=== PATIENT | male | born 1980 | race Caucasian/White ===

== ENCOUNTER 2016-04-08 20:15 | Emergency (ER) | payer OTHER, SELFPAY ==
[~2016-04-08 20:15] MED LIST: BACT800T5 PO; CLEO300C2 PO; MOTR200T44 PO; NICO14DI3 TD; PERC5TAB6 PO; VITMTA PO
[2016-04-08] MEDS ORDERED: NALOXONE INJ 2 MG/2 ML SYRINGE (J2310) As Ordered ONE (20:27)
--- NOTE | 2016-04-08 21:31 | EDDOCDS ---
Physician Documentation [facility] Name: Sree Acosta Age: 35 yrs Sex: Male : 1980 Arrival Date: 04/08/2016 Time: 20:15 Bed 1 Private MD: Unknown Pcp Disposition: 04/08 21:18 Critical Care: Critical care not applicable. pc Disposition: 04/08/16 21:20 Discharged to Home/Self Care. Impression: Poisoning by heroin, accidental (unintentional), Opioid abuse. - Condition is Stable. - Discharge Instructions: Narcotic Overdose, Opioid Use Disorder. - Medication Reconciliation, Local Pharmacy Hours form. - [facility] up[facility]; When: Call to arrange an appointment; Reason: To establish care. - Problem is new. - Symptoms are resolved. HPI: 20:18 This 35 yrs old Male presents to ER with complaints of Possible Overdose. pc 20:18 The history is obtained from the patient, EMS providers, EMR. A reliable history and/or pc examination was not able to be obtained, due to the patient's level of intoxication. He was found by his grandmother, unresponsive, in hew home. He is a known heroin abuser. She called 911 and they administered intranasal Narcan to a total of 4mg, with him improving from an initial unresponsive and apneic presentation to now awake and able to answer some questions and with normal respirations. The patient has experienced similar episodes in the past, several times. Historical: - Allergies: No known drug Allergies; - Home Meds: 1. mirtazapine 15 mg Oral tab 1 tab once daily - PMHx: Hepatitis C; Heroin Use; - PSHx: right hand surgery; - The history from nurses notes was reviewed: but there are no nursing notes, or only partial notes available at the time of my charting. - Social history: Smoking status: Patient uses tobacco products, heavy tobacco smoker. Patient uses street drugs, heroin, No barriers to communication noted, The patient speaks fluent [place]iboutian, Speaks appropriately for age. - Family history: No immediate family members are acutely ill. - : The pt / caregiver states he / she is not on anticoagulants. Home medication list is obtained from the patient. - Immunization history:: unknown. - Exposure Risk Screening:: None identified. - Social history:: the patient smokes cigarettes the patient drinks alcohol, the patient uses illicit drugs, including heroin, opiates. ROS: 20:22 Unable to reliably obtain pc Exam: 20:22 General Appearance: no acute distress, alert. pc 20:22 EENT: ears, nose and throat normal, pharynx normal, mucous membranes moist pupils 2-3mm, sluggish . 20:22 Neck: The exam reveals no acute abnormalities. ROM is normal and painless. No nuchal rigidity is noted.. 20:22 Respiratory: no respiratory distress, normal breath sounds. 20:22 CVS: regular pulse rate, regular rhythm, normal S1 and S2, no murmurs, strong peripheral pulses. 20:22 Abdomen: soft, non-tender, no organomegaly, normal bowel sounds. 20:22 Back: normal inspection. 20:22 Skin: skin color is normal, warm, dry. 20:22 Extremities: track carson on left forearm . 20:22 Neuro: cranial nerves normal as tested, no motor deficits, no sensory deficits, not oriented to time. Vital Signs: 20:19 Temp 98.0(O); af2 20:25 BP 120 / 74; Pulse 83; Resp 18; Pulse Ox 96% on R/A; Weight 80.74 kg / 178 lbs (M); nn1 Height 5 ft. 8 in. (172.72 cm); Pain 0/10; 20:27 BP 112 / 59 (auto/); nn1 20:28 Pulse 96 MON; Pulse Ox 91% ; nn1 20:30 BP 99 / 58 (auto/); nn1 20:30 Pulse 98 MON; Pulse Ox 91% ; nn1 20:45 BP 99 / 58 (auto/); nn1 20:45 Pulse 102 MON; Pulse Ox 91% ; nn1 21:00 BP 103 / 62 (auto/); nn1 21:01 Pulse 96 MON; Pulse Ox 91% ; nn1 21:22 BP 99 / 55; Pulse 94; Resp 18; Temp 98.7; Pulse Ox 95% on R/A; Pain 0/10; nn1 20:25 Body Mass Index 27.06 (80.74 kg, 172.72 cm) nn1 MDM: 20:18 naloxone 2 mg IM once ordered. pc 20:18 IV Saline Lock ordered. pc 20:18 naloxone 2 mg IVP once ordered. pc 20:22 Differential Diagnosis: heroin OD. Plan: meds, observe. pc 21:18 Data reviewed: available EMS record, old medical records, vital signs, nurses notes. pc Test interpretation: none. The patient has been re-examined and re-evaluated. The patient's symptoms have resolved after treatment. Disposition: The historical points, examination findings, and any diagnostic results supporting the provided diagnosis, were discussed with the patient or legal guardian. The need for outpatient follow up with the provider listed on their discharge instructions was discussed. They were encouraged to return to [facility], or the nearest ED, if symptoms worsen/persist, or for any other questions/concerns. 21:18 ED course: He denies any SI intent, that he did one bag of heroin for recreation only. pc He denies PFS services. Declines drug rehab counselling . Administered Medications: 20:32 Drug: naloxone 2 mg [naloxone 1 mg/mL injection syringe (2 mL)] Route: IVP; Site: right nn1 forearm; 20:33 Drug: naloxone 2 mg [naloxone 1 mg/mL injection syringe (2 mL)] Route: IM; Site: right nn1 deltoid; Signatures: Von Guevara MD MD pc Julio Cesar UmañaRN RN nn1 The chart was reviewed and I authenticate all verbal orders and agree with the evaluation and treatment provided.Corrections: (The following items were deleted from the chart) 20:21 20:18 The history is obtained from EMS providers, [facility] 21:21 21:18 ED course: He denies any SI intent, that he did one bag of heroin for recreation pc only . pc MTDD
--- NOTE | 2016-04-08 21:31 | EDDOCDS ---
Nurse's Notes [facility] Name: Sree Acosta Age: 35 yrs Sex: Male : 1980 Arrival Date: 04/08/2016 Time: 20:15 Bed 1 Private MD: Unknown Pcp Diagnosis: Poisoning by heroin, accidental (unintentional);Opioid abuse Presentation: 04/08 20:17 Presenting complaint: EMS states: patient found unresponsive on kitchen floor by his nn1 grandmother. Patient given 4mg narcan IM. Assisted ventilation at that time by EMS. Patient recently in rehab. Blood sugar was 366. Patient currently responsive, breathing spontaneously. Adult Sepsis Screening: Patient has new or worsening altered mentation (1 point). Patient's respiratory rate is less than 22. Systolic blood pressure is greater than 100. Patient has a qSOFA score of 1- Negative Sepsis Screen. Suicide/Homicide risk assessment- the patient denies having any suicidal and/or homicidal ideations and does not present with any other emotional, behavioral or mental health complaints. Status: Patient is not a service car driver or dependent. Transition of care: patient was not received from another setting of care. 20:17 Acuity: EILEEN Level 3 nn1 20:17 Method Of Arrival: Ambulance nn1 Triage Assessment: 20:22 General: Appears in no apparent distress, Behavior is appropriate for age, cooperative. nn1 Pain: Denies pain. Pt Declines HIV testing. The patient is triaged at the bedside. See Assessment in Nurses Notes section of ED record. Neurological: Level of Consciousness is awake, alert, confused, obeys commands, Oriented to person, place. Cardiovascular: Capillary refill < 3 seconds Heart tones S1 S2 present Chest pain is denied. Respiratory: No deficits noted. Airway is patent Respiratory effort is even, unlabored, Respiratory pattern is regular, symmetrical, Breath sounds are clear bilaterally. GI: Abdomen is non- distended Bowel sounds present X 4 quads. Abd is soft and non tender X 4 quads. Derm: Skin is pink, warm & dry. Musculoskeletal: Circulation, motion, and sensation intact Capillary refill < 3 seconds Range of motion intact in all extremities. Historical: - Allergies: No known drug Allergies; - Home Meds: 1. mirtazapine 15 mg Oral tab 1 tab once daily - PMHx: Hepatitis C; Heroin Use; - PSHx: right hand surgery; - The history from nurses notes was reviewed: but there are no nursing notes, or only partial notes available at the time of my charting. - Social history: Smoking status: Patient uses tobacco products, heavy tobacco smoker. Patient uses street drugs, heroin, No barriers to communication noted, The patient speaks fluent Fijian, Speaks appropriately for age. - Family history: No immediate family members are acutely ill. - : The pt / caregiver states he / she is not on anticoagulants. Home medication list is obtained from the patient. - Immunization history:: unknown. - Exposure Risk Screening:: None identified. - Social history:: the patient smokes cigarettes the patient drinks alcohol, the patient uses illicit drugs, including heroin, opiates. Screenin:23 Screening information is obtained from the patient. Fall risk: At risk due to substance nn1 abuse . Assistance ADL's: requires no assistance with activities of daily living. Abuse/DV Screen: The patient / caregiver reports he/she is: not in a situation that causes fear, pain or injury. Nutritional screening: No deficits noted. Advance Directives: Currently, there is no health care proxy. home support is adequate. Assessment: 20:25 General: See triage assessment . nn1 21:12 General: Appears in no apparent distress, comfortable, Behavior is appropriate for age, nn1 cooperative. Neurological: Level of Consciousness is awake, alert. Respiratory: Airway is patent Respiratory effort is even, unlabored, Respiratory pattern is regular, symmetrical, Breath sounds are clear bilaterally. Derm: Skin is pink, warm & dry. Vital Signs: 20:19 Temp 98.0(O); af2 20:25 BP 120 / 74; Pulse 83; Resp 18; Pulse Ox 96% on R/A; Weight 80.74 kg (M); Height 5 ft. nn1 8 in. (172.72 cm); Pain 0/10; 20:27 BP 112 / 59 (auto/); nn1 20:28 Pulse 96 MON; Pulse Ox 91% ; nn1 20:30 BP 99 / 58 (auto/); nn1 20:30 Pulse 98 MON; Pulse Ox 91% ; nn1 20:45 BP 99 / 58 (auto/); nn1 20:45 Pulse 102 MON; Pulse Ox 91% ; nn1 21:00 BP 103 / 62 (auto/); nn1 21:01 Pulse 96 MON; Pulse Ox 91% ; nn1 21:22 BP 99 / 55; Pulse 94; Resp 18; Temp 98.7; Pulse Ox 95% on R/A; Pain 0/10; nn1 20:25 Body Mass Index 27.06 (80.74 kg, 172.72 cm) nn1 Vitals: 20:19 Log In Time N/A - ambulance arrival. af2 ED Course: 20:16 Patient visited by Dang Carr PCA. tmm1 20:16 Unknown Pcp is Private Physician. tmm1 20:16 Patient moved to Waiting tmm1 20:17 Von Guevara MD is Attending Physician. pc 20:17 Patient visited by Von Guevara MD. pc 20:17 Patient moved to 1 tmm1 20:20 Triage Initiated nn1 20:25 Inserted saline lock: 20 gauge in right antecubital area and blood collected. The kas2 patient tolerated the procedure well. 21:12 Patient visited by Julio Cesar Umaña RN. nn1 21:20 [facility] is Referral Physician. pc 21:27 The patient / caregiver is instructed regarding the plan of care and ED course. nn1 21:28 No procedures done that require assistance. nn1 Administered Medications: 20:32 Drug: naloxone 2 mg [naloxone 1 mg/mL injection syringe (2 mL)] Route: IVP; Site: right nn1 forearm; 20:33 Drug: naloxone 2 mg [naloxone 1 mg/mL injection syringe (2 mL)] Route: IM; Site: right nn1 deltoid; Order Results: There are currently no results for this order. Outcome: 21:20 Discharge ordered by Provider. pc 21:27 Discharge Assessment: Patient awake, alert and oriented x 3. No cognitive and/or nn1 functional deficits noted. Patient verbalized understanding of disposition instructions. patient administered narcotics - no. The following High Risk Discharge criteria are identified: None. Discharged to home ambulatory. Condition: improved. No special radiology studies were completed. Property :Personal belongings accompany Pt. 21:29 Patient left the ED. nn1 Signatures: Von Guevara MD MD Dang Carr, SAEID DIRECTOR OF ARCHITECTURE tmm1 Ritika Jesus RN RN af2 Julio Cesar Umaña RN RN nn1 Chasidy Collins RN RN kas2 MTDD
--- NOTE | 2016-04-10 22:29 | EDDOCDS ---
Physician Documentation [facility] Name: Sree Acosta Age: 35 yrs Sex: Male : 1980 Arrival Date: 04/08/2016 Time: 20:15 Bed 1 Private MD: Unknown Pcp Disposition: 04/08 21:18 Critical Care: Critical care not applicable. pc Disposition: 04/08/16 21:20 Discharged to Home/Self Care. Impression: Poisoning by heroin, accidental (unintentional), Opioid abuse. - Condition is Stable. - Discharge Instructions: Narcotic Overdose, Opioid Use Disorder. - Medication Reconciliation, Local Pharmacy Hours form. - Follow up: [facility]; When: Call to arrange an appointment; Reason: To establish care. - Problem is new. - Symptoms are resolved. HPI: 20:18 This 35 yrs old Male presents to ER with complaints of Possible Overdose. pc 20:18 The history is obtained from the patient, EMS providers, EMR. A reliable history and/or pc examination was not able to be obtained, due to the patient's level of intoxication. He was found by his grandmother, unresponsive, in hew home. He is a known heroin abuser. She called 911 and they administered intranasal Narcan to a total of 4mg, with him improving from an initial unresponsive and apneic presentation to now awake and able to answer some questions and with normal respirations. The patient has experienced similar episodes in the past, several times. Historical: - Allergies: No known drug Allergies; - Home Meds: 1. mirtazapine 15 mg Oral tab 1 tab once daily - PMHx: Hepatitis C; Heroin Use; - PSHx: right hand surgery; - The history from nurses notes was reviewed: but there are no nursing notes, or only partial notes available at the time of my charting. - Social history: Smoking status: Patient uses tobacco products, heavy tobacco smoker. Patient uses street drugs, heroin, No barriers to communication noted, The patient speaks fluent Kyrgyz, Speaks appropriately for age. - Family history: No immediate family members are acutely ill. - : The pt / caregiver states he / she is not on anticoagulants. Home medication list is obtained from the patient. - Immunization history:: unknown. - Exposure Risk Screening:: None identified. - Social history:: the patient smokes cigarettes the patient drinks alcohol, the patient uses illicit drugs, including heroin, opiates. ROS: 20:22 Unable to reliably obtain pc Exam: 20:22 General Appearance: no acute distress, alert. pc 20:22 EENT: ears, nose and throat normal, pharynx normal, mucous membranes moist pupils 2-3mm, sluggish . 20:22 Neck: The exam reveals no acute abnormalities. ROM is normal and painless. No nuchal rigidity is noted.. 20:22 Respiratory: no respiratory distress, normal breath sounds. 20:22 CVS: regular pulse rate, regular rhythm, normal S1 and S2, no murmurs, strong peripheral pulses. 20:22 Abdomen: soft, non-tender, no organomegaly, normal bowel sounds. 20:22 Back: normal inspection. 20:22 Skin: skin color is normal, warm, dry. 20:22 Extremities: track carson on left forearm . 20:22 Neuro: cranial nerves normal as tested, no motor deficits, no sensory deficits, not oriented to time. Vital Signs: 20:19 Temp 98.0(O); af2 20:25 BP 120 / 74; Pulse 83; Resp 18; Pulse Ox 96% on R/A; Weight 80.74 kg / 178 lbs (M); nn1 Height 5 ft. 8 in. (172.72 cm); Pain 0/10; 20:27 BP 112 / 59 (auto/); nn1 20:28 Pulse 96 MON; Pulse Ox 91% ; nn1 20:30 BP 99 / 58 (auto/); nn1 20:30 Pulse 98 MON; Pulse Ox 91% ; nn1 20:45 BP 99 / 58 (auto/); nn1 20:45 Pulse 102 MON; Pulse Ox 91% ; nn1 21:00 BP 103 / 62 (auto/); nn1 21:01 Pulse 96 MON; Pulse Ox 91% ; nn1 21:22 BP 99 / 55; Pulse 94; Resp 18; Temp 98.7; Pulse Ox 95% on R/A; Pain 0/10; nn1 20:25 Body Mass Index 27.06 (80.74 kg, 172.72 cm) nn1 MDM: 20:18 naloxone 2 mg IM once ordered. pc 20:18 IV Saline Lock ordered. pc 20:18 naloxone 2 mg IVP once ordered. pc 20:22 Differential Diagnosis: heroin OD. Plan: meds, observe. pc 21:18 Data reviewed: available EMS record, old medical records, vital signs, nurses notes. pc Test interpretation: none. The patient has been re-examined and re-evaluated. The patient's symptoms have resolved after treatment. Disposition: The historical points, examination findings, and any diagnostic results supporting the provided diagnosis, were discussed with the patient or legal guardian. The need for outpatient follow up with the provider listed on their discharge instructions was discussed. They were encouraged to return to [facility], or the nearest ED, if symptoms worsen/persist, or for any other questions/concerns. 21:18 ED course: He denies any SI intent, that he did one bag of heroin for recreation only. pc He denies PFS services. Declines drug rehab counselling . :53 Financial registration complete. zo :53 [facility] Payment Agreement was scanned into [address] and attached to record. zo Administered Medications: 20:32 Drug: naloxone 2 mg [naloxone 1 mg/mL injection syringe (2 mL)] Route: IVP; Site: right nn1 forearm; 20:33 Drug: naloxone 2 mg [naloxone 1 mg/mL injection syringe (2 mL)] Route: IM; Site: right nn1 deltoid; Signatures: Von Guevara MD MD pc Olin, Zoeann zo Nunez, NikkoleRN RN nn1 The chart was reviewed and I authenticate all verbal orders and agree with the evaluation and treatment provided.Corrections: (The following items were deleted from the chart) 20:21 20:18 The history is obtained from EMS providers, pc pc : 21:18 ED course: He denies any SI intent, that he did one bag of heroin for recreation pc only . pc Attachments: :53 [facility] Payment Agreement zo Chart Complete MTDD
--- NOTE | 2016-04-10 22:29 | EDDOCDS ---
Physician Documentation [facility] Name: Sree Acosta Age: 35 yrs Sex: Male : 1980 Arrival Date: 04/08/2016 Time: 20:15 Bed 1 Private MD: Unknown Pcp Disposition: 04/08 21:18 Critical Care: Critical care not applicable. pc Disposition: 04/08/16 21:20 Discharged to Home/Self Care. Impression: Poisoning by heroin, accidental (unintentional), Opioid abuse. - Condition is Stable. - Discharge Instructions: Narcotic Overdose, Opioid Use Disorder. - Medication Reconciliation, Local Pharmacy Hours form. - Follow up: [facility]; When: Call to arrange an appointment; Reason: To establish care. - Problem is new. - Symptoms are resolved. HPI: 20:18 This 35 yrs old Male presents to ER with complaints of Possible Overdose. pc 20:18 The history is obtained from the patient, EMS providers, EMR. A reliable history and/or pc examination was not able to be obtained, due to the patient's level of intoxication. He was found by his grandmother, unresponsive, in hew home. He is a known heroin abuser. She called 911 and they administered intranasal Narcan to a total of 4mg, with him improving from an initial unresponsive and apneic presentation to now awake and able to answer some questions and with normal respirations. The patient has experienced similar episodes in the past, several times. Historical: - Allergies: No known drug Allergies; - Home Meds: 1. mirtazapine 15 mg Oral tab 1 tab once daily - PMHx: Hepatitis C; Heroin Use; - PSHx: right hand surgery; - The history from nurses notes was reviewed: but there are no nursing notes, or only partial notes available at the time of my charting. - Social history: Smoking status: Patient uses tobacco products, heavy tobacco smoker. Patient uses street drugs, heroin, No barriers to communication noted, The patient speaks fluent Palestinian, Speaks appropriately for age. - Family history: No immediate family members are acutely ill. - : The pt / caregiver states he / she is not on anticoagulants. Home medication list is obtained from the patient. - Immunization history:: unknown. - Exposure Risk Screening:: None identified. - Social history:: the patient smokes cigarettes the patient drinks alcohol, the patient uses illicit drugs, including heroin, opiates. ROS: 20:22 Unable to reliably obtain pc Exam: 20:22 General Appearance: no acute distress, alert. pc 20:22 EENT: ears, nose and throat normal, pharynx normal, mucous membranes moist pupils 2-3mm, sluggish . 20:22 Neck: The exam reveals no acute abnormalities. ROM is normal and painless. No nuchal rigidity is noted.. 20:22 Respiratory: no respiratory distress, normal breath sounds. 20:22 CVS: regular pulse rate, regular rhythm, normal S1 and S2, no murmurs, strong peripheral pulses. 20:22 Abdomen: soft, non-tender, no organomegaly, normal bowel sounds. 20:22 Back: normal inspection. 20:22 Skin: skin color is normal, warm, dry. 20:22 Extremities: track carson on left forearm . 20:22 Neuro: cranial nerves normal as tested, no motor deficits, no sensory deficits, not oriented to time. Vital Signs: 20:19 Temp 98.0(O); af2 20:25 BP 120 / 74; Pulse 83; Resp 18; Pulse Ox 96% on R/A; Weight 80.74 kg / 178 lbs (M); nn1 Height 5 ft. 8 in. (172.72 cm); Pain 0/10; 20:27 BP 112 / 59 (auto/); nn1 20:28 Pulse 96 MON; Pulse Ox 91% ; nn1 20:30 BP 99 / 58 (auto/); nn1 20:30 Pulse 98 MON; Pulse Ox 91% ; nn1 20:45 BP 99 / 58 (auto/); nn1 20:45 Pulse 102 MON; Pulse Ox 91% ; nn1 21:00 BP 103 / 62 (auto/); nn1 21:01 Pulse 96 MON; Pulse Ox 91% ; nn1 21:22 BP 99 / 55; Pulse 94; Resp 18; Temp 98.7; Pulse Ox 95% on R/A; Pain 0/10; nn1 20:25 Body Mass Index 27.06 (80.74 kg, 172.72 cm) nn1 MDM: 20:18 naloxone 2 mg IM once ordered. pc 20:18 IV Saline Lock ordered. pc 20:18 naloxone 2 mg IVP once ordered. pc 20:22 Differential Diagnosis: heroin OD. Plan: meds, observe. pc 21:18 Data reviewed: available EMS record, old medical records, vital signs, nurses notes. pc Test interpretation: none. The patient has been re-examined and re-evaluated. The patient's symptoms have resolved after treatment. Disposition: The historical points, examination findings, and any diagnostic results supporting the provided diagnosis, were discussed with the patient or legal guardian. The need for outpatient follow up with the provider listed on their discharge instructions was discussed. They were encouraged to return to [facility], or the nearest ED, if symptoms worsen/persist, or for any other questions/concerns. 21:18 ED course: He denies any SI intent, that he did one bag of heroin for recreation only. pc He denies PFS services. Declines drug rehab counselling . :53 Financial registration complete. zo :53 [facility] Payment Agreement was scanned into [employer] and attached to record. zo Administered Medications: 20:32 Drug: naloxone 2 mg [naloxone 1 mg/mL injection syringe (2 mL)] Route: IVP; Site: right nn1 forearm; 20:33 Drug: naloxone 2 mg [naloxone 1 mg/mL injection syringe (2 mL)] Route: IM; Site: right nn1 deltoid; Signatures: Von Guevara MD MD pc Olin, Zoeann zo Nunez, NikkoleRN RN nn1 The chart was reviewed and I authenticate all verbal orders and agree with the evaluation and treatment provided.Corrections: (The following items were deleted from the chart) 20:21 20:18 The history is obtained from EMS providers, pc pc : 21:18 ED course: He denies any SI intent, that he did one bag of heroin for recreation pc only . pc Attachments: :53 [facility] Payment Agreement zo Chart Complete MTDD
--- NOTE | 2016-04-10 22:29 | EDDOCDS ---
Nurse's Notes [facility] Name: Sree Acosta Age: 35 yrs Sex: Male : 1980 Arrival Date: 04/08/2016 Time: 20:15 Bed 1 Private MD: Unknown Pcp Diagnosis: Poisoning by heroin, accidental (unintentional);Opioid abuse Presentation: 04/08 20:17 Presenting complaint: EMS states: patient found unresponsive on kitchen floor by his nn1 grandmother. Patient given 4mg narcan IM. Assisted ventilation at that time by EMS. Patient recently in rehab. Blood sugar was 366. Patient currently responsive, breathing spontaneously. Adult Sepsis Screening: Patient has new or worsening altered mentation (1 point). Patient's respiratory rate is less than 22. Systolic blood pressure is greater than 100. Patient has a qSOFA score of 1- Negative Sepsis Screen. Suicide/Homicide risk assessment- the patient denies having any suicidal and/or homicidal ideations and does not present with any other emotional, behavioral or mental health complaints. Status: Patient is not a assistant customer service manager or dependent. Transition of care: patient was not received from another setting of care. 20:17 Acuity: EILEEN Level 3 nn1 20:17 Method Of Arrival: Ambulance nn1 Triage Assessment: 20:22 General: Appears in no apparent distress, Behavior is appropriate for age, cooperative. nn1 Pain: Denies pain. Pt Declines HIV testing. The patient is triaged at the bedside. See Assessment in Nurses Notes section of ED record. Neurological: Level of Consciousness is awake, alert, confused, obeys commands, Oriented to person, place. Cardiovascular: Capillary refill < 3 seconds Heart tones S1 S2 present Chest pain is denied. Respiratory: No deficits noted. Airway is patent Respiratory effort is even, unlabored, Respiratory pattern is regular, symmetrical, Breath sounds are clear bilaterally. GI: Abdomen is non- distended Bowel sounds present X 4 quads. Abd is soft and non tender X 4 quads. Derm: Skin is pink, warm & dry. Musculoskeletal: Circulation, motion, and sensation intact Capillary refill < 3 seconds Range of motion intact in all extremities. Historical: - Allergies: No known drug Allergies; - Home Meds: 1. mirtazapine 15 mg Oral tab 1 tab once daily - PMHx: Hepatitis C; Heroin Use; - PSHx: right hand surgery; - The history from nurses notes was reviewed: but there are no nursing notes, or only partial notes available at the time of my charting. - Social history: Smoking status: Patient uses tobacco products, heavy tobacco smoker. Patient uses street drugs, heroin, No barriers to communication noted, The patient speaks fluent Finnish, Speaks appropriately for age. - Family history: No immediate family members are acutely ill. - : The pt / caregiver states he / she is not on anticoagulants. Home medication list is obtained from the patient. - Immunization history:: unknown. - Exposure Risk Screening:: None identified. - Social history:: the patient smokes cigarettes the patient drinks alcohol, the patient uses illicit drugs, including heroin, opiates. Screenin:23 Screening information is obtained from the patient. Fall risk: At risk due to substance nn1 abuse . Assistance ADL's: requires no assistance with activities of daily living. Abuse/DV Screen: The patient / caregiver reports he/she is: not in a situation that causes fear, pain or injury. Nutritional screening: No deficits noted. Advance Directives: Currently, there is no health care proxy. home support is adequate. Assessment: 20:25 General: See triage assessment . nn1 21:12 General: Appears in no apparent distress, comfortable, Behavior is appropriate for age, nn1 cooperative. Neurological: Level of Consciousness is awake, alert. Respiratory: Airway is patent Respiratory effort is even, unlabored, Respiratory pattern is regular, symmetrical, Breath sounds are clear bilaterally. Derm: Skin is pink, warm & dry. Vital Signs: 20:19 Temp 98.0(O); af2 20:25 BP 120 / 74; Pulse 83; Resp 18; Pulse Ox 96% on R/A; Weight 80.74 kg (M); Height 5 ft. nn1 8 in. (172.72 cm); Pain 0/10; 20:27 BP 112 / 59 (auto/); nn1 20:28 Pulse 96 MON; Pulse Ox 91% ; nn1 20:30 BP 99 / 58 (auto/); nn1 20:30 Pulse 98 MON; Pulse Ox 91% ; nn1 20:45 BP 99 / 58 (auto/); nn1 20:45 Pulse 102 MON; Pulse Ox 91% ; nn1 21:00 BP 103 / 62 (auto/); nn1 21:01 Pulse 96 MON; Pulse Ox 91% ; nn1 21:22 BP 99 / 55; Pulse 94; Resp 18; Temp 98.7; Pulse Ox 95% on R/A; Pain 0/10; nn1 20:25 Body Mass Index 27.06 (80.74 kg, 172.72 cm) nn1 Vitals: 20:19 Log In Time N/A - ambulance arrival. af2 ED Course: 20:16 Patient visited by Dang Carr PCA. tmm1 20:16 Unknown Pcp is Private Physician. tmm1 20:16 Patient moved to Waiting tmm1 20:17 Von Guevara MD is Attending Physician. pc 20:17 Patient visited by Von Guevara MD. pc 20:17 Patient moved to 1 tmm1 20:20 Triage Initiated nn1 20:25 Inserted saline lock: 20 gauge in right antecubital area and blood collected. The kas2 patient tolerated the procedure well. 21:12 Patient visited by Julio Cesar Umaña RN. nn1 21:20 [facility] is Referral Physician. pc 21:27 The patient / caregiver is instructed regarding the plan of care and ED course. nn1 21:28 No procedures done that require assistance. nn1 21:53 [facility] Payment Agreement was scanned into [employer] and attached to record. zo Administered Medications: 20:32 Drug: naloxone 2 mg [naloxone 1 mg/mL injection syringe (2 mL)] Route: IVP; Site: right nn1 forearm; 20:33 Drug: naloxone 2 mg [naloxone 1 mg/mL injection syringe (2 mL)] Route: IM; Site: right nn1 deltoid; Order Results: There are currently no results for this order. Outcome: 21:20 Discharge ordered by Provider. pc 21:27 Discharge Assessment: Patient awake, alert and oriented x 3. No cognitive and/or nn1 functional deficits noted. Patient verbalized understanding of disposition instructions. patient administered narcotics - no. The following High Risk Discharge criteria are identified: None. Discharged to home ambulatory. Condition: improved. No special radiology studies were completed. Property :Personal belongings accompany Pt. 21:29 Patient left the ED. nn1 Signatures: Von Guevara MD MD Best Cason Dang Carr, SAEID [place] [address] Ritika Jesus RN RN af2 Julio Cesar UmañaRN RN nn1 Chasidy Collins,RN RN kas2 Chart Complete MTDD
== END 2016-04-08 21:29 | disposition home or self-care (01) ==
LOC: M ED 20:15
DX: F11.10 Opioid abuse, uncomplicated (principal); B18.2 Chronic viral hepatitis C; F17.210 Nicotine dependence, cigarettes, uncomplicated; Z79.899 Other long term (current) drug therapy
CPT/HCPCS: 36415; 96372; 96374; 99291; J2310

== ENCOUNTER 2016-04-16 22:06 | Emergency (ER) | payer MEDICAID, SELFPAY ==
[2016-04-16] MEDS ORDERED: NALOXONE INJ 2 MG/2 ML SYRINGE (J2310) As Ordered ONE (22:19)
[2016-04-16 23:16] LABS: BASO % 0.2 % (0.0-1.0); EOS % 0.7 % (0.0-3.0); LARGE UNSTAINED CELL # 0.1 K/mm3 (0.0-0.4); LARGE UNSTAINED CELL % 1.7 % (0.0-4.0); LYMPH # 0.7 K/mm3 (1.5-4.5); LYMPH % 10.2 % (24.0-44.0); MEAN CORPUSCULAR HEMOGLOBIN 31.7 pg (27.0-33.0); MEAN CORPUSCULAR HGB CONC 35.6 g/dl (32.0-36.5); MEAN CORPUSCULAR VOLUME 89.1 fl (80.0-96.0); MONO # 0.4 K/mm3 (0.0-0.8); MONO % 4.9 % (0.0-5.0); NEUTROPHILS % 82.3 % (36.0-66.0); PLATELET COUNT, AUTOMATED 265 k/mm3 (150-450); RED CELL DISTRIBUTION WIDTH 12.4 % (11.5-14.5); WHITE BLOOD COUNT 7.3 K/mm3 (4.0-10.0)
[2016-04-16 23:25] LABS: ANION GAP 10 MEQ/L (8-16); BLOOD UREA NITROGEN 14 MG/DL (7-18); CALCIUM LEVEL 8.3 MG/DL (8.5-10.1); CARBON DIOXIDE LEVEL 25 MEQ/L (21-32); CHLORIDE LEVEL 107 MEQ/L (98-107); CREATININE FOR GFR 1.02 MG/DL (0.70-1.30); GLOMERULAR FILTRATION RATE > 60.0 (>60); GLUCOSE, FASTING 166 MG/DL (70-105); POTASSIUM SERUM 3.4 MEQ/L (3.5-5.1); SODIUM LEVEL 142 MEQ/L (136-145)
[2016-04-16] MEDS ORDERED: MIRT15TA3 PO (23:30)
--- NOTE | 2016-04-16 23:56 | EDDOCDS ---
Nurse's Notes [facility] Name: Sree Acosta Age: 35 yrs Sex: Male : 1980 Arrival Date: 04/16/2016 Time: 22:06 Bed 8 Private MD: Diagnosis: Poisoning by heroin, accidental (unintentional) Presentation: 04/16 22:10 Presenting complaint: EMS states: per EMS pt had overdose tonight of unknown Narcotic tm5 possible Heroin, Narcan 4mg Intranasally given, pt was unresponsive upon EMS arrival with CPR in progress, BG FS 322, VSS, Sinus on monitor, no IV access. Adult Sepsis Screening: The patient does not have new or worsening altered mentation. Patient's respiratory rate is less than 22. Systolic blood pressure is greater than 100. Patient has a qSOFA score of 0- Negative Sepsis Screen. Suicide/Homicide risk assessment- the patient denies having any suicidal and/or homicidal ideations and does not present with any other emotional, behavioral or mental health complaints. Status: Patient is not a client services representative or dependent. Transition of care: patient was not received from another setting of care. 22:10 Acuity: EILEEN Level 2 tm5 22:10 Method Of Arrival: Ambulance tm5 Triage Assessment: 22:15 General: Appears in no apparent distress, Behavior is appropriate for age, cooperative, tm5 restless. Pain: Denies pain. Pt Declines HIV testing. The patient is triaged at the bedside. See Assessment in Nurses Notes section of ED record. Neurological: Level of Consciousness is awake, alert, Oriented to person, place, time. Cardiovascular: Rhythm is regular. Respiratory: Airway is patent Respiratory effort is even, unlabored, Respiratory pattern is regular, symmetrical, Breath sounds are clear bilaterally. GI: Abdomen is non- distended Bowel sounds present X 4 quads. Abd is soft and non tender X 4 quads. : No deficits noted. Derm: Skin is pink, warm & dry. normal. Historical: - Allergies: no known allergies; - Home Meds: 1. mirtazapine 15 mg Oral tab 1 tab once daily - PMHx: Hepatitis C; Heroin Use; - PSHx: kidney & spleen repair; - Social history: Smoking status: Patient uses tobacco products, current every day smoker. Patient uses street drugs, heroin, IV drugs, heroin, No barriers to communication noted, The patient speaks fluent [place] Citizen. - Family history: Not pertinent. - : The pt / caregiver states he / she is not on anticoagulants. Home medication list is obtained from the patient. - Exposure Risk Screening:: None identified. Screenin:17 Screening information is obtained from the patient. Fall risk: No risks identified. tm5 Assistance ADL's: requires no assistance with activities of daily living. Abuse/DV Screen: The patient / caregiver reports he/she is: not in a situation that causes fear, pain or injury. Nutritional screening: No deficits noted. Advance Directives: Currently, there is no health care proxy. There is no active DNR order. home support is adequate. Assessment: 22:17 General: See triage assessment . tm5 23:05 Reassessment: Patient appears in no apparent distress at this time. General: Appears tm5 Behavior is cooperative, restless. 23:52 Reassessment: Patient appears in no apparent distress at this time. pt signing out AMA tm5 refuses to stay for further testing, pt made aware of risk with signing out AMA. Vital Signs: 22:56 BP 114 / 52; Pulse 93; Resp 18; Temp 99.6; Pulse Ox 90% ; Weight 86.18 kg; Height 5 ft. [facility] 7 in. (170.18 cm); Pain 0/10; 23:00 BP 116 / 58 Supine; Pulse 88; tm5 23:00 BP 118 / 52 Sitting; Pulse 74; tm5 23:00 BP 119 / 68 Standing; Pulse 87; tm5 23:52 BP 116 / 52; Pulse 77; Resp 16; Temp 97.8(O); Pulse Ox 99% on R/A; Pain 0/10; tm5 22:56 Body Mass Index 29.76 (86.18 kg, 170.18 cm) [facility] Vitals: 22:15 Log In Time N/A - ambulance arrival. tm5 ED Course: 22:08 Patient visited by Nino Avendaño PCA. kb5 22:08 Patient moved to Waiting kb5 22:08 Patient moved to 8 kb5 22:10 Patient visited by Tammi Batista RN. tm5 22:14 Triage Initiated tm5 22:17 Awaiting ED physician evaluation. tm5 22:17 The patient / caregiver is instructed regarding the plan of care and ED course. Cardiac tm5 monitor on. Pulse ox on. NIBP on. 22:24 Dharmesh Tavarez MD is Attending Physician. br1 22:30 Patient visited by Dharmesh Tavarez MD. br1 22:55 Inserted saline lock: 20 gauge in left and blood collected. The patient tolerated the kas2 procedure well. left foot. No procedures done that require assistance. 22:56 Basic Metabolic Profile Sent. kas2 22:56 CBC with Diff Sent. kas2 22:56 Cardiac Injury Profile Sent. kas2 22:56 Troponin Sent. kas2 22:57 Patient visited by Chasidy Collins RN. kas2 22:57 Patient visited by Merissa Guo, Business Services Administrator. jlm 23:05 Patient visited by Tammi Batista,NICKO. tm5 23:09 Patient visited by Merissa Guo, Business Services Administrator. jlm 23:09 EKG done. (by ED staff). Reviewed by Dharmesh Tavarez MD. jlm 23:25 Patient visited by Tammi Batista,NICKO. tm5 23:40 [facility] is Referral Physician. br1 23:42 Addiction Services is Referral Physician. br1 23:52 Patient visited by Tammi Batista RN. tm5 23:52 Discontinued lock intact, bleeding controlled, pressure dressing applied, No tm5 redness/swelling at site. Order Results: Lab Order: Basic Metabolic Profile; SPEC'M 04/16/16 22:54 Test: GLUCOSE, FASTING; Value: 166; Range: 70-105; Abnormal: Above high normal; Units: MG/DL; Status: F Test: BLOOD UREA NITROGEN; Value: 14; Range: 7-18; Units: MG/DL; Status: F Test: CREATININE FOR GFR; Value: 1.02; Range: 0.70-1.30; Units: MG/DL; Status: F Test: GLOMERULAR FILTRATION RATE; Value: > 60.0; Range: >60; Status: F Test: SODIUM LEVEL; Value: 142; Range: 136-145; Units: MEQ/L; Status: F Test: POTASSIUM SERUM; Value: 3.4; Range: 3.5-5.1; Abnormal: Below low normal; Units: MEQ/L; Status: F Test: CHLORIDE LEVEL; Value: 107; Range: 98-107; Units: MEQ/L; Status: F Test: CARBON DIOXIDE LEVEL; Value: 25; Range: 21-32; Units: MEQ/L; Status: F Test: ANION GAP; Value: 10; Range: 8-16; Units: MEQ/L; Status: F Test: CALCIUM LEVEL; Value: 8.3; Range: 8.5-10.1; Abnormal: Below low normal; Units: MG/DL; Status: F Test Note: ; Units are mL/min/1.73 m2 Chronic Kidney Disease Staging per NKF: Stage I & II GFR >=60 Normal to Mildly Decreased Stage III GFR 30-59 Moderately Decreased Stage IV GFR 15-29 Severely Decreased Stage V GFR <15 Very Little GFR Left ESRD GFR <15 on DOG BARBER Lab Order: CBC with Diff; SPEC'M 04/16/16 22:54 Test: WHITE BLOOD COUNT; Value: 7.3; Range: 4.0-10.0; Units: K/mm3; Status: F Test: RED BLOOD COUNT; Value: 4.33; Range: 4.30-6.10; Units: M/mm3; Status: F Test: HEMOGLOBIN; Value: 13.7; Range: 14.0-18.0; Abnormal: Below low normal; Units: g/dl; Status: F Test: HEMATOCRIT; Value: 38.6; Range: 42.0-52.0; Abnormal: Below low normal; Units: %; Status: F Test: MEAN CORPUSCULAR VOLUME; Value: 89.1; Range: 80.0-96.0; Units: fl; Status: F Test: MEAN CORPUSCULAR HEMOGLOBIN; Value: 31.7; Range: 27.0-33.0; Units: pg; Status: F Test: MEAN CORPUSCULAR HGB CONC; Value: 35.6; Range: 32.0-36.5; Units: g/dl; Status: F Test: RED CELL DISTRIBUTION WIDTH; Value: 12.4; Range: 11.5-14.5; Units: %; Status: F Test: PLATELET COUNT, AUTOMATED; Value: 265; Range: 150-450; Units: k/mm3; Status: F Test: NEUTROPHILS %; Value: 82.3; Range: 36.0-66.0; Abnormal: Above high normal; Units: %; Status: F Test: LYMPH %; Value: 10.2; Range: 24.0-44.0; Abnormal: Below low normal; Units: %; Status: F Test: MONO %; Value: 4.9; Range: 0.0-5.0; Units: %; Status: F Test: EOS %; Value: 0.7; Range: 0.0-3.0; Units: %; Status: F Test: BASO %; Value: 0.2; Range: 0.0-1.0; Units: %; Status: F Test: LARGE UNSTAINED CELL %; Value: 1.7; Range: 0.0-4.0; Units: %; Status: F Test: NEUTROPHILS #; Value: 6.0; Range: 1.8-7.7; Units: K/mm3; Status: F Test: LYMPH #; Value: 0.7; Range: 1.5-4.5; Abnormal: Below low normal; Units: K/mm3; Status: F Test: MONO #; Value: 0.4; Range: 0.0-0.8; Units: K/mm3; Status: F Test: EOS #; Value: 0.0; Range: 0.0-0.50; Units: K/mm3; Status: F Test: BASO #; Value: 0.0; Range: 0.0-0.2; Units: K/mm3; Status: F Test: LARGE UNSTAINED CELL #; Value: 0.1; Range: 0.0-0.4; Units: K/mm3; Status: F Lab Order: Cardiac Injury Profile; SPEC'M 04/16/16 22:54 Test: CPK CREATINE PHOSPHOKINASE; Value: 421; Range: 39-308; Abnormal: Above high normal; Units: U/L; Status: F Test: CK-MB VALUE MASS; Value: 8.1; Range: 0.0-3.6; Abnormal: Above high normal; Units: NG/ML; Status: F Test: MB/CK RELATIVE INDEX; Value: 1.92; Range: < OR =4; Status: F Test Note: ; DIAGNOSIS CRITERIA MMB ng/ml Relative Index (RI) NON-AMI < or = 5 N/A ELIZONDO ZONE > 5 < or = 4 AMI > 5 > 4 Lab Order: Troponin; SPEC'M 04/16/16 22:54 Test: TROPONIN I; Value: < 0.02; Range: < 0.10; Units: NG/ML; Status: F Test Note: ; Troponin I Reference Interval for Team Apart LOCI: 99th Percentile= 0.00-0.045 ng/ml Risk Stratification: <= 0.10 ng/ml Decreased Risk for Adverse Clinical Events. 0.10-1.50 ng/ml Increased Risk for Adverse Clinical Events. Evaluation of additional criterion and/or repeat testing in 2-6 hours is suggested to rule out myocardial damage. >= 1.50 ng/ml Indicative of Myocardial Injury. Outcome: 23:42 Patient left against medical advice. br1 23:52 Discharge Assessment: Patient awake, alert and oriented x 3. No cognitive and/or tm5 functional deficits noted. Patient verbalized understanding of disposition instructions. patient administered narcotics - no. The following High Risk Discharge criteria are identified: Yes, pt signed out AMA & also has Drug abuse history. The patient is leaving AMA: AMA form signed, Notification of AMA status is made to the charge nurse, the marriage and family social worker, the ED attending physician. Condition: stable. Discharge instructions given to patient, Instructed on discharge instructions, follow up and referral plans. Demonstrated understanding of instructions, Pt was receptive of discharge instructions/ teaching. No special radiology studies were completed. Property :Personal belongings accompany Pt. 23:55 Patient left the ED. tm5 Signatures: Nino Avendaño, TALENT ADVISOR TALENT ADVISOR kb5 Dharmesh Tavarez MD MD br1 Merissa Guo, Business Services Administrator Unit Chasidy Nunez RN RN kas2 Tammi Batista RN RN tm5 MTDD
--- NOTE | 2016-04-16 23:56 | EDDOCDS ---
Physician Documentation [facility] Name: Sree Acosta Age: 35 yrs Sex: Male : 1980 Arrival Date: 04/16/2016 Time: 22:06 Bed 8 Private MD: Disposition: 04/16/16 23:42 Patient has left against medical advice. Impression: Poisoning by heroin, accidental (unintentional). - Patients states they are going to Home/Self Care. - Condition is Stable. - Discharge Instructions: Alcohol and Drug Addiction, Finding Treatment, AMA. Medication Reconciliation, Local Pharmacy Hours form. Follow up: [facility]; When: As soon as possible; Reason: Recheck today's complaints. Follow up: Addiction Services; When: 2 - 3 days; Reason: Recheck today's complaints. - Problem is new. - Symptoms have improved. - Notes: You were seen in the ED for an episode of unresponsiveness after using heroin. Bloodwork showed slightly low potassium but no other acute findings. EKG of the heart was abnormal. Although you should stay for further testing, monitoring, and treatment, you have refused and decided to leave against our medical advice. Please seek care with your primary doctor and addiction services as soon as possible. If you have no doctor please call the [facility] to arrange to be seen. Return to the ED at any time if you change your mind, for any chest pain, trouble breathing, lightheadedness, loss of consciousness or any other concerns. Historical: - Allergies: no known allergies; - Home Meds: 1. mirtazapine 15 mg Oral tab 1 tab once daily - PMHx: Hepatitis C; Heroin Use; - PSHx: kidney & spleen repair; - Social history: Smoking status: Patient uses tobacco products, current every day smoker. Patient uses street drugs, heroin, IV drugs, heroin, No barriers to communication noted, The patient speaks fluent Somali. - Family history: Not pertinent. - : The pt / caregiver states he / she is not on anticoagulants. Home medication list is obtained from the patient. - Exposure Risk Screening:: None identified. Vital Signs: 04/16 22:56 BP 114 / 52; Pulse 93; Resp 18; Temp 99.6; Pulse Ox 90% ; Weight 86.18 kg / 189.99 lbs; jlm Height 5 ft. 7 in. (170.18 cm); Pain 0/10; 23:00 BP 116 / 58 Supine; Pulse 88; tm5 23:00 BP 118 / 52 Sitting; Pulse 74; tm5 23:00 BP 119 / 68 Standing; Pulse 87; tm5 23:52 BP 116 / 52; Pulse 77; Resp 16; Temp 97.8(O); Pulse Ox 99% on R/A; Pain 0/10; tm5 22:56 Body Mass Index 29.76 (86.18 kg, 170.18 cm) [facility] MDM: 22:24 Post Form Remover/Pulse Ox/q 30 min VS ordered. br1 22:24 IV Saline Lock ordered. br1 22:24 Rhythm Strip to chart ordered. br1 22:24 Undress patient appropriately for examination ordered. br1 22:24 Orthostatic VS ordered. br1 22:25 Basic Metabolic Profile Ordered. EDMS 22:26 CBC with Diff Ordered. EDMS 22:26 Cardiac Injury Profile Ordered. EDMS 22:26 Troponin Ordered. EDMS 22:26 portable chest Ordered. EDMS 22:26 ECG WITH READING ER PHYS+CARDIAG ordered. EDMS 22:31 Urine Toxicology Ordered. EDMS 22:50 Vital Signs ordered. br1 22:52 BED REQUEST+ADM ordered. EDMS 23:31 Basic Metabolic Profile Reviewed. br1 23:31 CBC with Diff Reviewed. br1 23:31 Cardiac Injury Profile Reviewed. br1 23:31 Troponin Reviewed. br1 23:36 Financial registration complete. hs2 Signatures: Dispatcher [employer] EDMS Dharmesh Tavarez MD MD br1 Nicole Chairez, Reg Reg hs2 Tammi Batista,RN RN tm5 MTDD
--- NOTE | 2016-04-17 08:37 | REP ---
AP PORTABLE CHEST: 04/16/2016 at 10:35 PM. Comparison: PA chest 08/02/2010. Clinical history: Syncope. Findings: Lungs are well inflated. There is no pleural effusion or lateral pleural thickening. I see no apical scarring or pneumothorax. This is a somewhat lordotic projection limiting evaluation of posterior lower lung zones. Some perihilar increased markings that may reflect some patchy atelectasis or early infiltrate. No clement edema or dense consolidation with air bronchograms. The heart, mediastinal and hilar contours otherwise unremarkable. Airway intact. Bones intact. No free air under the diaphragm. Impression: 1. Some minor perihilar changes that may reflect some atelectasis or patchy infiltrates but no cardiomegaly, edema, effusion or other acute finding. Signed by [place] MD 04/17/2016 04:56 P
--- NOTE | 2016-04-18 09:04 | ECGEPIP ---
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
--- NOTE | 2016-04-19 00:56 | EDDOCDS ---
Physician Documentation [facility] Name: Sree Acosta Age: 35 yrs Sex: Male : 1980 Arrival Date: 04/16/2016 Time: 22:06 Bed 8 Private MD: Disposition: 04/16/16 23:42 Patient has left against medical advice. Impression: Poisoning by heroin, accidental (unintentional). - Patients states they are going to Home/Self Care. - Condition is Stable. - Discharge Instructions: Alcohol and Drug Addiction, Finding Treatment, AMA. Medication Reconciliation, Local Pharmacy Hours form. Follow up: [facility]; When: As soon as possible; Reason: Recheck today's complaints. Follow up: Addiction Services; When: 2 - 3 days; Reason: Recheck today's complaints. - Problem is new. - Symptoms have improved. - Notes: You were seen in the ED for an episode of unresponsiveness after using heroin. Bloodwork showed slightly low potassium but no other acute findings. EKG of the heart was abnormal. Although you should stay for further testing, monitoring, and treatment, you have refused and decided to leave against our medical advice. Please seek care with your primary doctor and addiction services as soon as possible. If you have no doctor please call the [facility] to arrange to be seen. Return to the ED at any time if you change your mind, for any chest pain, trouble breathing, lightheadedness, loss of consciousness or any other concerns. Historical: - Allergies: no known allergies; - Home Meds: 1. mirtazapine 15 mg Oral tab 1 tab once daily - PMHx: Hepatitis C; Heroin Use; - PSHx: kidney & spleen repair; - Social history: Smoking status: Patient uses tobacco products, current every day smoker. Patient uses street drugs, heroin, IV drugs, heroin, No barriers to communication noted, The patient speaks fluent Cuban. - Family history: Not pertinent. - : The pt / caregiver states he / she is not on anticoagulants. Home medication list is obtained from the patient. - Exposure Risk Screening:: None identified. Vital Signs: 04/16 22:56 BP 114 / 52; Pulse 93; Resp 18; Temp 99.6; Pulse Ox 90% ; Weight 86.18 kg / 189.99 lbs; jlm Height 5 ft. 7 in. (170.18 cm); Pain 0/10; 23:00 BP 116 / 58 Supine; Pulse 88; tm5 23:00 BP 118 / 52 Sitting; Pulse 74; tm5 23:00 BP 119 / 68 Standing; Pulse 87; tm5 23:52 BP 116 / 52; Pulse 77; Resp 16; Temp 97.8(O); Pulse Ox 99% on R/A; Pain 0/10; tm5 22:56 Body Mass Index 29.76 (86.18 kg, 170.18 cm) [facility] MDM: 22:24 Semi Driver/Pulse Ox/q 30 min VS ordered. br1 22:24 IV Saline Lock ordered. br1 22:24 Rhythm Strip to chart ordered. br1 22:24 Undress patient appropriately for examination ordered. br1 22:24 Orthostatic VS ordered. br1 22:25 Basic Metabolic Profile Ordered. EDMS 22:26 CBC with Diff Ordered. EDMS 22:26 Cardiac Injury Profile Ordered. EDMS 22:26 Troponin Ordered. EDMS 22:26 portable chest Ordered. EDMS 22:26 ECG WITH READING ER PHYS+CARDIAG ordered. EDMS 22:31 Urine Toxicology Ordered. EDMS 22:50 Vital Signs ordered. br1 22:52 BED REQUEST+ADM ordered. EDMS 23:31 Basic Metabolic Profile Reviewed. br1 23:31 CBC with Diff Reviewed. br1 23:31 Cardiac Injury Profile Reviewed. br1 23:31 Troponin Reviewed. br1 23:36 Financial registration complete. hs2 04/17 00:01 [facility] Payment Agreement was scanned into [employer] and attached to record. pm4 10:57 Refusal of Services was scanned into [employer] and attached to record. gb 10:58 T-Sheet-- Draft Copy was scanned into [employer] and attached to record. gb 10:58 ECG/EKG was scanned into [employer] and attached to record. gb 15:44 PCR was scanned into [employer] and attached to record. gb Signatures: Dispatcher [employer] EDMS Teresa Barkley, Reg Reg gb Dharmesh Tavarez MD MD br1 Nicole Chairez, Reg Reg hs2 Tammi Batista RN RN tm5 Niranjan Naranjo, Reg Reg pm4 The chart was reviewed and I authenticate all verbal orders and agree with the evaluation and treatment provided.Attachments: 00:01 [facility] [place] pm4 10:58 T-Sheet-- Draft Copy gb 10:58 ECG/EKG gb Chart Complete MTDD
--- NOTE | 2016-04-19 00:57 | EDDOCDS ---
Physician Documentation [facility] Name: Sree Acosta Age: 35 yrs Sex: Male : 1980 Arrival Date: 04/16/2016 Time: 22:06 Bed 8 Private MD: Disposition: 04/16/16 23:42 Patient has left against medical advice. Impression: Poisoning by heroin, accidental (unintentional). - Patients states they are going to Home/Self Care. - Condition is Stable. - Discharge Instructions: Alcohol and Drug Addiction, Finding Treatment, AMA. Medication Reconciliation, Local Pharmacy Hours form. Follow up: [facility]; When: As soon as possible; Reason: Recheck today's complaints. Follow up: Addiction Services; When: 2 - 3 days; Reason: Recheck today's complaints. - Problem is new. - Symptoms have improved. - Notes: You were seen in the ED for an episode of unresponsiveness after using heroin. Bloodwork showed slightly low potassium but no other acute findings. EKG of the heart was abnormal. Although you should stay for further testing, monitoring, and treatment, you have refused and decided to leave against our medical advice. Please seek care with your primary doctor and addiction services as soon as possible. If you have no doctor please call the [facility] to arrange to be seen. Return to the ED at any time if you change your mind, for any chest pain, trouble breathing, lightheadedness, loss of consciousness or any other concerns. Historical: - Allergies: no known allergies; - Home Meds: 1. mirtazapine 15 mg Oral tab 1 tab once daily - PMHx: Hepatitis C; Heroin Use; - PSHx: kidney & spleen repair; - Social history: Smoking status: Patient uses tobacco products, current every day smoker. Patient uses street drugs, heroin, IV drugs, heroin, No barriers to communication noted, The patient speaks fluent Ukrainian. - Family history: Not pertinent. - : The pt / caregiver states he / she is not on anticoagulants. Home medication list is obtained from the patient. - Exposure Risk Screening:: None identified. Vital Signs: 04/16 22:56 BP 114 / 52; Pulse 93; Resp 18; Temp 99.6; Pulse Ox 90% ; Weight 86.18 kg / 189.99 lbs; jlm Height 5 ft. 7 in. (170.18 cm); Pain 0/10; 23:00 BP 116 / 58 Supine; Pulse 88; tm5 23:00 BP 118 / 52 Sitting; Pulse 74; tm5 23:00 BP 119 / 68 Standing; Pulse 87; tm5 23:52 BP 116 / 52; Pulse 77; Resp 16; Temp 97.8(O); Pulse Ox 99% on R/A; Pain 0/10; tm5 22:56 Body Mass Index 29.76 (86.18 kg, 170.18 cm) [facility] MDM: 22:24 Sales Vendor/Pulse Ox/q 30 min VS ordered. br1 22:24 IV Saline Lock ordered. br1 22:24 Rhythm Strip to chart ordered. br1 22:24 Undress patient appropriately for examination ordered. br1 22:24 Orthostatic VS ordered. br1 22:25 Basic Metabolic Profile Ordered. EDMS 22:26 CBC with Diff Ordered. EDMS 22:26 Cardiac Injury Profile Ordered. EDMS 22:26 Troponin Ordered. EDMS 22:26 portable chest Ordered. EDMS 22:26 ECG WITH READING ER PHYS+CARDIAG ordered. EDMS 22:31 Urine Toxicology Ordered. EDMS 22:50 Vital Signs ordered. br1 22:52 BED REQUEST+ADM ordered. EDMS 23:31 Basic Metabolic Profile Reviewed. br1 23:31 CBC with Diff Reviewed. br1 23:31 Cardiac Injury Profile Reviewed. br1 23:31 Troponin Reviewed. br1 23:36 Financial registration complete. hs2 04/17 00:01 [facility] Payment Agreement was scanned into MED[employer] and attached to record. pm4 10:57 Refusal of Services was scanned into MEDHOST and attached to record. gb 10:58 T-Sheet-- Draft Copy was scanned into [employer] and attached to record. gb 10:58 ECG/EKG was scanned into MED[employer] and attached to record. gb 15:44 PCR was scanned into MEDHOST and attached to record. gb Signatures: Dispatcher [employer] EDMS Teresa Barkley, Reg Reg gb Dharmesh Tavarez MD MD br1 Nicole Chairez, Reg Reg hs2 Tammi Batista RN RN tm5 Niranjan Naranjo, Reg Reg pm4 The chart was reviewed and I authenticate all verbal orders and agree with the evaluation and treatment provided.Attachments: 00:01 [facility] [place] Agreement pm4 10:58 T-Sheet-- Draft Copy gb 10:58 ECG/EKG gb Chart Complete MTDD
--- NOTE | 2016-04-19 00:57 | EDDOCDS ---
Nurse's Notes [facility] Name: Sree Beach Age: 35 yrs Sex: Male : 1980 Arrival Date: 04/16/2016 Time: 22:06 Bed 8 Private MD: Diagnosis: Poisoning by heroin, accidental (unintentional) Presentation: 04/16 22:10 Presenting complaint: EMS states: per EMS pt had overdose tonight of unknown Narcotic tm5 possible Heroin, Narcan 4mg Intranasally given, pt was unresponsive upon EMS arrival with CPR in progress, BG FS 322, VSS, Sinus on monitor, no IV access. Adult Sepsis Screening: The patient does not have new or worsening altered mentation. Patient's respiratory rate is less than 22. Systolic blood pressure is greater than 100. Patient has a qSOFA score of 0- Negative Sepsis Screen. Suicide/Homicide risk assessment- the patient denies having any suicidal and/or homicidal ideations and does not present with any other emotional, behavioral or mental health complaints. Status: Patient is not a social services manager or dependent. Transition of care: patient was not received from another setting of care. 22:10 Acuity: EILEEN Level 2 tm5 22:10 Method Of Arrival: Ambulance tm5 Triage Assessment: 22:15 General: Appears in no apparent distress, Behavior is appropriate for age, cooperative, tm5 restless. Pain: Denies pain. Pt Declines HIV testing. The patient is triaged at the bedside. See Assessment in Nurses Notes section of ED record. Neurological: Level of Consciousness is awake, alert, Oriented to person, place, time. Cardiovascular: Rhythm is regular. Respiratory: Airway is patent Respiratory effort is even, unlabored, Respiratory pattern is regular, symmetrical, Breath sounds are clear bilaterally. GI: Abdomen is non- distended Bowel sounds present X 4 quads. Abd is soft and non tender X 4 quads. : No deficits noted. Derm: Skin is pink, warm & dry. normal. Historical: - Allergies: no known allergies; - Home Meds: 1. mirtazapine 15 mg Oral tab 1 tab once daily - PMHx: Hepatitis C; Heroin Use; - PSHx: kidney & spleen repair; - Social history: Smoking status: Patient uses tobacco products, current every day smoker. Patient uses street drugs, heroin, IV drugs, heroin, No barriers to communication noted, The patient speaks fluent Uzbek. - Family history: Not pertinent. - : The pt / caregiver states he / she is not on anticoagulants. Home medication list is obtained from the patient. - Exposure Risk Screening:: None identified. Screenin:17 Screening information is obtained from the patient. Fall risk: No risks identified. tm5 Assistance ADL's: requires no assistance with activities of daily living. Abuse/DV Screen: The patient / caregiver reports he/she is: not in a situation that causes fear, pain or injury. Nutritional screening: No deficits noted. Advance Directives: Currently, there is no health care proxy. There is no active DNR order. home support is adequate. Assessment: 22:17 General: See triage assessment . tm5 23:05 Reassessment: Patient appears in no apparent distress at this time. General: Appears tm5 Behavior is cooperative, restless. 23:52 Reassessment: Patient appears in no apparent distress at this time. pt signing out AMA tm5 refuses to stay for further testing, pt made aware of risk with signing out AMA. Social Work Consult: 23:58 LWBS/AMA AMA: Patient is refusing further stabilizing treatment at [facility], although cl offered treatment regardless of method of payment or ability to pay. Patient is aware that this action is being undertaken against the advice of the medical staff at [facility]. Pt. has capacity to understand the potential consequences of this choice. pt did notify ED staff. Pt left after speaking with PSA. PSA met with pt who denies any SI/HI, substance abuse referrals provided, pt declined any other interventions, states he will f/u [facility] tomorrow. Vital Signs: 22:56 BP 114 / 52; Pulse 93; Resp 18; Temp 99.6; Pulse Ox 90% ; Weight 86.18 kg; Height 5 ft. jlm 7 in. (170.18 cm); Pain 0/10; 23:00 BP 116 / 58 Supine; Pulse 88; tm5 23:00 BP 118 / 52 Sitting; Pulse 74; tm5 23:00 BP 119 / 68 Standing; Pulse 87; tm5 23:52 BP 116 / 52; Pulse 77; Resp 16; Temp 97.8(O); Pulse Ox 99% on R/A; Pain 0/10; tm5 22:56 Body Mass Index 29.76 (86.18 kg, 170.18 cm) [facility] Vitals: 22:15 Log In Time N/A - ambulance arrival. tm5 ED Course: 22:08 Patient visited by Nino Avendaño PCA. kb5 22:08 Patient moved to Waiting kb5 22:08 Patient moved to 8 kb5 22:10 Patient visited by Tammi Batista,RN. tm5 22:14 Triage Initiated tm5 22:17 Awaiting ED physician evaluation. tm5 22:17 The patient / caregiver is instructed regarding the plan of care and ED course. Cardiac tm5 monitor on. Pulse ox on. NIBP on. 22:24 Dharmesh Tvaarez MD is Attending Physician. br1 22:30 Patient visited by Dharmesh Tavarez MD. br1 22:55 Inserted saline lock: 20 gauge in left and blood collected. The patient tolerated the kas2 procedure well. left foot. No procedures done that require assistance. 22:56 Basic Metabolic Profile Sent. kas2 22:56 CBC with Diff Sent. kas2 22:56 Cardiac Injury Profile Sent. kas2 22:56 Troponin Sent. kas2 22:57 Patient visited by Chasidy Collins RN. kas2 22:57 Patient visited by Merissa Guo, Customer Advisor Specialist. jlm 23:05 Patient visited by Tammi Batista,NICKO. tm5 23:09 Patient visited by Merissa Guo, Customer Advisor Specialist. jlm 23:09 EKG done. (by ED staff). Reviewed by Dharmesh Tavarez MD. jlm 23:25 Patient visited by Tammi Batista,NICKO. tm5 23:40 [facility] is Referral Physician. br1 23:42 Addiction Services is Referral Physician. br1 23:52 Patient visited by Tammi Batista,NICKO. tm5 23:52 Discontinued lock intact, bleeding controlled, pressure dressing applied, No tm5 redness/swelling at site. 04/17 00:01 [facility] [place] was scanned into [employer] and attached to record. pm4 08:53 portable chest Returned. EDMS 10:57 Refusal of Services was scanned into [employer] and attached to record. gb 10:58 T-Sheet-- Draft Copy was scanned into [employer] and attached to record. gb 10:58 ECG/EKG was scanned into [employer] and attached to record. gb 15:44 PCR was scanned into [employer] and attached to record. 04/18 09:17 EKG-ADULT Returned. EDMS Attachments: 10:57 Refusal of Services gb Order Results: Lab Order: Basic Metabolic Profile; SPEC'M 04/16/16 22:54 Test: GLUCOSE, FASTING; Value: 166; Range: 70-105; Abnormal: Above high normal; Units: MG/DL; Status: F Test: BLOOD UREA NITROGEN; Value: 14; Range: 7-18; Units: MG/DL; Status: F Test: CREATININE FOR GFR; Value: 1.02; Range: 0.70-1.30; Units: MG/DL; Status: F Test: GLOMERULAR FILTRATION RATE; Value: > 60.0; Range: >60; Status: F Test: SODIUM LEVEL; Value: 142; Range: 136-145; Units: MEQ/L; Status: F Test: POTASSIUM SERUM; Value: 3.4; Range: 3.5-5.1; Abnormal: Below low normal; Units: MEQ/L; Status: F Test: CHLORIDE LEVEL; Value: 107; Range: 98-107; Units: MEQ/L; Status: F Test: CARBON DIOXIDE LEVEL; Value: 25; Range: 21-32; Units: MEQ/L; Status: F Test: ANION GAP; Value: 10; Range: 8-16; Units: MEQ/L; Status: F Test: CALCIUM LEVEL; Value: 8.3; Range: 8.5-10.1; Abnormal: Below low normal; Units: MG/DL; Status: F Test Note: ; Units are mL/min/1.73 m2 Chronic Kidney Disease Staging per NKF: Stage I & II GFR >=60 Normal to Mildly Decreased Stage III GFR 30-59 Moderately Decreased Stage IV GFR 15-29 Severely Decreased Stage V GFR <15 Very Little GFR Left ESRD GFR <15 on SUPPLY ANALYST Lab Order: CBC with Diff; SPEC'M 04/16/16 22:54 Test: WHITE BLOOD COUNT; Value: 7.3; Range: 4.0-10.0; Units: K/mm3; Status: F Test: RED BLOOD COUNT; Value: 4.33; Range: 4.30-6.10; Units: M/mm3; Status: F Test: HEMOGLOBIN; Value: 13.7; Range: 14.0-18.0; Abnormal: Below low normal; Units: g/dl; Status: F Test: HEMATOCRIT; Value: 38.6; Range: 42.0-52.0; Abnormal: Below low normal; Units: %; Status: F Test: MEAN CORPUSCULAR VOLUME; Value: 89.1; Range: 80.0-96.0; Units: fl; Status: F Test: MEAN CORPUSCULAR HEMOGLOBIN; Value: 31.7; Range: 27.0-33.0; Units: pg; Status: F Test: MEAN CORPUSCULAR HGB CONC; Value: 35.6; Range: 32.0-36.5; Units: g/dl; Status: F Test: RED CELL DISTRIBUTION WIDTH; Value: 12.4; Range: 11.5-14.5; Units: %; Status: F Test: PLATELET COUNT, AUTOMATED; Value: 265; Range: 150-450; Units: k/mm3; Status: F Test: NEUTROPHILS %; Value: 82.3; Range: 36.0-66.0; Abnormal: Above high normal; Units: %; Status: F Test: LYMPH %; Value: 10.2; Range: 24.0-44.0; Abnormal: Below low normal; Units: %; Status: F Test: MONO %; Value: 4.9; Range: 0.0-5.0; Units: %; Status: F Test: EOS %; Value: 0.7; Range: 0.0-3.0; Units: %; Status: F Test: BASO %; Value: 0.2; Range: 0.0-1.0; Units: %; Status: F Test: LARGE UNSTAINED CELL %; Value: 1.7; Range: 0.0-4.0; Units: %; Status: F Test: NEUTROPHILS #; Value: 6.0; Range: 1.8-7.7; Units: K/mm3; Status: F Test: LYMPH #; Value: 0.7; Range: 1.5-4.5; Abnormal: Below low normal; Units: K/mm3; Status: F Test: MONO #; Value: 0.4; Range: 0.0-0.8; Units: K/mm3; Status: F Test: EOS #; Value: 0.0; Range: 0.0-0.50; Units: K/mm3; Status: F Test: BASO #; Value: 0.0; Range: 0.0-0.2; Units: K/mm3; Status: F Test: LARGE UNSTAINED CELL #; Value: 0.1; Range: 0.0-0.4; Units: K/mm3; Status: F Lab Order: Cardiac Injury Profile; SPEC'M 04/16/16 22:54 Test: CPK CREATINE PHOSPHOKINASE; Value: 421; Range: 39-308; Abnormal: Above high normal; Units: U/L; Status: F Test: CK-MB VALUE MASS; Value: 8.1; Range: 0.0-3.6; Abnormal: Above high normal; Units: NG/ML; Status: F Test: MB/CK RELATIVE INDEX; Value: 1.92; Range: < OR =4; Status: F Test Note: ; DIAGNOSIS CRITERIA MMB ng/ml Relative Index (RI) NON-AMI < or = 5 N/A ELIZONDO ZONE > 5 < or = 4 AMI > 5 > 4 Lab Order: Troponin; SPEC'M 04/16/16 22:54 Test: TROPONIN I; Value: < 0.02; Range: < 0.10; Units: NG/ML; Status: F Test Note: ; Troponin I Reference Interval for [employer] LOCI: 99th Percentile= 0.00-0.045 ng/ml Risk Stratification: <= 0.10 ng/ml Decreased Risk for Adverse Clinical Events. 0.10-1.50 ng/ml Increased Risk for Adverse Clinical Events. Evaluation of additional criterion and/or repeat testing in 2-6 hours is suggested to rule out myocardial damage. >= 1.50 ng/ml Indicative of Myocardial Injury. Radiology Order: portable chest Test: portable chest REASON FOR EXAMINATION: Syncope; AP PORTABLE CHEST: 04/16/2016 at 10:35 PM.; ; Comparison: PA chest 08/02/2010.; ; Clinical history: Syncope.; ; Findings: Lungs are well inflated. There is no pleural effusion or lateral; pleural thickening. I see no apical scarring or pneumothorax. This is a somewhat; lordotic projection limiting evaluation of posterior lower lung zones. Some; perihilar increased markings that may reflect some patchy atelectasis or early; infiltrate. No clement edema or dense consolidation with air bronchograms. The; heart, mediastinal and hilar contours otherwise unremarkable. Airway intact.; Bones intact. No free air under the diaphragm.; ; Impression:; ; 1. 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 br1 23:52 Discharge Assessment: Patient awake, alert and oriented x 3. No cognitive and/or tm5 functional deficits noted. Patient verbalized understanding of disposition instructions. patient administered narcotics - no. The following High Risk Discharge criteria are identified: Yes, pt signed out AMA & also has Drug abuse history. The patient is leaving AMA: AMA form signed, Notification of AMA status is made to the charge nurse, the social sciences lecturer, the ED attending physician. Condition: stable. Discharge instructions given to patient, Instructed on discharge instructions, follow up and referral plans. Demonstrated understanding of instructions, Pt was receptive of discharge instructions/ teaching. No special radiology studies were completed. Property :Personal belongings accompany Pt. 23:55 Patient left the ED. tm5 Signatures: Dispatcher [employer] EDMS Sreedhar Pepe, JARROD PSA Teresa Haro, Reg Reg gb Nino Avendaño, X RAY DEVELOPER X RAY DEVELOPER kb5 Dharmesh Tavarez MD MD br1 Merissa Guo, Customer Advisor Specialist Unit Chasidy Nunez,RN RN kas2 Tammi Batista RN RN tm5 Niranjan Naranjo, Reg Reg pm4 Chart Complete MTDD
== END 2016-04-16 23:36 | disposition left against medical advice (07) ==
LOC: M ED 22:06
DX: T40.1X1A Poisoning by heroin, accidental (unintentional), initial encounter (principal); Y92.89 Other specified places as the place of occurrence of the external cause; Y93.89 Activity, other specified; Y99.8 Other external cause status; B18.2 Chronic viral hepatitis C; F17.210 Nicotine dependence, cigarettes, uncomplicated; F11.90 Opioid use, unspecified, uncomplicated; Z79.899 Other long term (current) drug therapy
CPT/HCPCS: 36415; 71010; 80048; 82550; 82553; 85025; 93005; 93041; 99284; J2310

== ENCOUNTER 2019-03-07 07:30 | Emergency (ER) | payer MEDICAID ==
[~2019-03-07] VITALS: Ht 170.2 cm; Wt 81.4 kg
[~2019-03-07 07:30] MED LIST changes: +MIRT15TA3 PO; +PERC5TAB12 PO; -PERC5TAB6 PO
[2019-03-07] MEDS ORDERED: WELL100T2 PO (07:34)
[2019-03-07] MEDS ORDERED: ACETAMINOPHEN 500 MG TAB PO ONE (08:00)
--- NOTE | 2019-03-07 08:24 | REP ---
Clinical: Trauma. Crush injury Technique: AP, lateral, bilateral oblique views left hand . Findings: The osseous structures and joint spaces are intact and normal. There is no evidence for acute fracture or dislocation. Surrounding soft tissues are unremarkable. No subcutaneous emphysema or radiodense foreign body. Impression: No acute fracture or dislocation. Electronically Signed by Keny Jones MD 03/07/2019 08:15 A
[2019-03-07] MEDS ORDERED: IBUP80TA PO (08:42)
[2019-03-07 08:52] VITALS: BP 133/75
== END 2019-03-07 08:55 | disposition home or self-care (01) ==
LOC: M ED 07:30
DX: S67.92XA Crushing injury of unspecified part(s) of left wrist, hand and fingers, initial encounter (principal); W23.0XXA Caught, crushed, jammed, or pinched between moving objects, initial encounter; Y92.009 Unspecified place in unspecified non-institutional (private) residence as the place of occurrence of the external cause; Y93.9 Activity, unspecified; F17.200 Nicotine dependence, unspecified, uncomplicated; F41.9 Anxiety disorder, unspecified; Z79.899 Other long term (current) drug therapy

== ENCOUNTER 2019-03-19 05:22 | Inpatient (IN) | payer MEDICAID ==
[~2019-03-19] VITALS: Ht 167.6 cm; Wt 84.6 kg
[~2019-03-19 05:22] MED LIST changes: +IBUP80TA PO; +WELL100T2 PO
[2019-03-19 06:07] LABS: HEMATOCRIT 35.1 % (42.0-52.0); HEMOGLOBIN 12.3 g/dl (13.5-17.5); MEAN CORPUSCULAR VOLUME 94.1 fl (80.0-96.0); PLATELET COUNT, AUTOMATED 352 10^3/uL (150-450); RED BLOOD COUNT 3.73 10^6/uL (4.30-6.10); WHITE BLOOD COUNT 6.2 10^3/uL (4.0-10.0)
[2019-03-19] MEDS ORDERED: AUGMENTIN 875 MG TAB PO ONE (06:30)
[2019-03-19 06:37] LABS: ACETAMINOPHEN LEVEL < 2.0 UG/ML (10.0-30.0); ALBUMIN 3.4 GM/DL (3.2-5.2); ALT/SGPT 54 U/L (12-78); BILIRUBIN,DIRECT 0.2 MG/DL (0.0-0.2); BILIRUBIN,TOTAL 0.6 MG/DL (0.2-1.0); BLOOD UREA NITROGEN 10 MG/DL (7-18); CALCIUM LEVEL 8.5 MG/DL (8.5-10.1); CARBON DIOXIDE LEVEL 27 MEQ/L (21-32); CHLORIDE LEVEL 111 MEQ/L (98-107); CREATININE FOR GFR 0.64 MG/DL (0.70-1.30); ETHYL ALCOHOL (ETHANOL) < 0.003 % (0.000-0.010); GLOMERULAR FILTRATION RATE > 60.0 (>60); GLUCOSE, FASTING 70 MG/DL (70-100); POTASSIUM SERUM 4.1 MEQ/L (3.5-5.1); SALICYLATE LEVEL 1.7 MG/DL (5.0-30.0); SODIUM LEVEL 145 MEQ/L (136-145); THYROID STIMULATING HORMONE 0.244 uIU/ML (0.358-3.740); TOTAL PROTEIN 7.1 GM/DL (6.4-8.2)
[2019-03-19] MEDS ORDERED: NICOTINE 21MG/24HR 1 EA TRANSDERMAL TD ONE (08:30)
--- NOTE | 2019-03-19 08:30 | REP ---
Left hand series: Four views. History: Pain 2 days after a fall. Findings: Or views of the left hand demonstrate overall normal mineralization. There is marked soft tissue swelling dorsally over the metacarpals carpals and distal forearm visible on the lateral radiograph. This is a new finding when compared with the prior left hand radiographs obtained in this patient on March 07, 2019. There is no evidence of acute fracture or subluxation. Impression: No acute fracture or subluxation seen. Marked dorsal soft tissue swelling over the distal forearm, wrist, and metacarpal regions. Electronically Signed by Sharan James MD 03/19/2019 08:22 A
--- NOTE | 2019-03-19 08:31 | REP ---
Left forearm: Two views. History: History of injury in a fall 2 days prior. Findings: The radius and ulna are intact. No fractures seen. There is soft tissue swelling dorsally over the distal forearm extending over the carpus and metacarpal regions. Impression: Soft-tissue swelling. No fracture seen. Electronically Signed by Sharan James MD 03/19/2019 08:23 A
[2019-03-19 09:49] LABS: AMPHETAMINES LEVEL URINE POSITIVE (NEGATIVE); BARBITURATES URINE NEGATIVE (NEGATIVE); BENZODIAZEPINES URINE NEGATIVE (NEGATIVE); CANNABINOIDS URINE POSITIVE (NEGATIVE); COCAINE METABOLITE URINE NEGATIVE (NEGATIVE); METHADONE URINE NEGATIVE (NEGATIVE); OPIATES URINE NEGATIVE (NEGATIVE); PHENCYCLIDINE URINE NEGATIVE (NEGATIVE)
[2019-03-19] MEDS ORDERED: IBUPROFEN 600 MG TAB PO ONE (13:30)
[2019-03-19] MEDS ORDERED: ALEV220T22 PO (14:41)
[2019-03-19] MEDS: AUGMENTIN 875 MG TAB PO SCH (21:33)
--- NOTE | 2019-03-20 06:03 | ECGEPIP ---
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
[2019-03-20] MEDS ORDERED: KETOROLAC 30 MG/ML VIAL (J1885) IV ONE ×2 (08:30→14:30)
[2019-03-20] MEDS: AUGMENTIN 875 MG TAB PO SCH ×2 (09:02→20:50)
[2019-03-20] MEDS ORDERED: buPROPion (WELLBUTRIN SR) 100 MG SR TAB PO ONE ×2 (09:15→22:00)
[2019-03-20 09:24] LABS: BASO % 0.3 % (0.0-1.0); EOS # 0.3 10^3/uL (0.0-0.5); HEMATOCRIT 34.8 % (42.0-52.0); HEMOGLOBIN 11.6 g/dl (13.5-17.5); LYMPH % 15.2 % (24.0-44.0); MEAN CORPUSCULAR HEMOGLOBIN 31.9 pg (27.0-33.0); MEAN CORPUSCULAR HGB CONC 33.3 g/dl (32.0-36.5); MEAN CORPUSCULAR VOLUME 95.6 fl (80.0-96.0); MONO # 0.4 10^3/uL (0.0-0.8); MONO % 5.3 % (0.0-5.0); NEUTROPHILS # 4.8 10^3/uL (1.5-8.5); NEUTROPHILS % 73.9 % (36.0-66.0); PLATELET COUNT, AUTOMATED 326 10^3/uL (150-450); RED BLOOD COUNT 3.64 10^6/uL (4.30-6.10); WHITE BLOOD COUNT 6.6 10^3/uL (4.0-10.0)
[2019-03-20 09:47] LABS: BLOOD UREA NITROGEN 8 MG/DL (7-18); C REACTIVE PROTEIN QUANTITATIV 3.67 MG/DL (0.00-0.30); CALCIUM LEVEL 8.2 MG/DL (8.5-10.1); CARBON DIOXIDE LEVEL 27 MEQ/L (21-32); CHLORIDE LEVEL 109 MEQ/L (98-107); CREATININE FOR GFR 0.57 MG/DL (0.70-1.30); GLOMERULAR FILTRATION RATE > 60.0 (>60); GLUCOSE, FASTING 63 MG/DL (70-100); POTASSIUM SERUM 4.1 MEQ/L (3.5-5.1); SODIUM LEVEL 141 MEQ/L (136-145)
[2019-03-20 09:52] LABS: ERYTHROCYTE SEDIMENTATION RATE 61 mm/hr (0-15)
--- NOTE | 2019-03-20 11:10 | REP ---
SOFT-TISSUE ULTRASOUND OF THE DORSUM OF THE LEFT HAND. HISTORY: Left hand and forearm edema. IV drug use history. Injury in a fall 2 days prior. SONOGRAPHIC FINDINGS: The dorsum of the hand distal forearm and wrist was scanned in transverse and sagittal images. Diffuse soft tissue edema is seen. There is non-fluid soft tissue swelling surrounding the extensor digitorum tendons. There is hyperemia in this tissue. A small quantity of fluid is seen. There is diffuse subcutaneous edema as well. IMPRESSION: Hypoechoic material surrounds the extensor digitorum tendons with a small quantity of adjacent fluid and some hyperemia. Findings suggestive of tenosynovitis. There is subcutaneous edema diffusely as well. No drainable abscess is seen. Electronically Signed by Sharan James MD 03/20/2019 11:42 A
[2019-03-20] MEDS ORDERED: KETOROLAC TROMETHAMINE 10 MG TAB PO PRN (18:00)
[2019-03-20] MEDS ORDERED: buPROPion (WELLBUTRIN SR) 100 MG SR TAB PO SCH (22:00)
[2019-03-21] MEDS: AUGMENTIN 875 MG TAB PO SCH ×2 (07:47→21:05)
[2019-03-21] MEDS ORDERED: buPROPion (WELLBUTRIN SR) 100 MG SR TAB PO ONE (09:00)
[2019-03-21 13:41] VITALS: BP 136/70
[2019-03-21] MEDS: ACETAMINOPHEN TAB 650MG DOSE (2X325MG) PO PRN (16:12)
[2019-03-21] MEDS: IBUPROFEN 400 MG TAB PO PRN (17:18)
[2019-03-21 18:00] VITALS: BP 119/69
[2019-03-21] MEDS: traZODone 50 MG TAB PO PRN (21:05)
[2019-03-21] MEDS: buPROPion (WELLBUTRIN SR) 100 MG SR TAB PO SCH (21:05)
[2019-03-22 06:34] VITALS: BP 118/62
[2019-03-22] MEDS: AUGMENTIN 875 MG TAB PO SCH ×2 (08:22→21:36)
[2019-03-22] MEDS: ACETAMINOPHEN TAB 650MG DOSE (2X325MG) PO PRN ×2 (08:23→16:19)
[2019-03-22] MEDS: buPROPion (WELLBUTRIN SR) 100 MG SR TAB PO SCH ×2 (08:23→21:36)
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
[2019-03-22] MEDS: IBUPROFEN 400 MG TAB PO PRN ×2 (11:33→21:36)
--- NOTE | 2019-03-22 14:36 | HPEPDOC ---
[facility] Medical History & Physical Date of Admission Mar 22, 2019 Date of Service: Mar 22, 2019 Attending Physician: JENNIFER FLORES MD History and Physical CHIEF COMPLAINT: Suicide attempt HISTORY OF PRESENT ILLNESS: 38-year-old male with past medical history of anxiety, depression and polysubstance abuse, was admitted to inpatient mental health unit for suicide attempt. [facility], upon returning home, he found significant issues with his social life including his significant other and kids. Patient was fed up with this life so he attempted to overdose on drugs but wasn't successful. He then presented to the hospital for voluntary admission. Currently, he reports symptoms of depression, also reports falling on his left hand with significant swelling and pain. He denies any shortness of breath, chest pain, nausea, vomiting, abdominal pain or diarrhea. 10 point review of system is negative except for above PAST MEDICAL HISTORY: 1. Anxiety. 2. Depression. 3. Polysubstance abuse. PAST SURGICAL HISTORY: 1. Hand surgery. SOCIAL HISTORY: Current smoker, smokes half pack per day for 10 years. Denies alcohol use. Currently, does heroin and Radha FAMILY HISTORY: Father had stomach cancer ALLERGIES: Please see below. HOME MEDICATIONS: Please see below. PHYSICAL EXAMINATION: VITAL SIGNS: Please see below. GENERAL: No distress HEENT: Normocephalic, atraumatic, moist mucous membranes NECK: Supple CARDIOVASCULAR EXAMINATION: S1, S2, no murmurs RESPIRATORY EXAMINATION: Clear to auscultation, no wheezing ABDOMINAL EXAMINATION: Soft, nontender, nondistended, positive bowel sounds EXTREMITIES: Left hand with significant edema on the dorsal surface with tenderness to palpation SKIN: No rash NEUROLOGICAL EXAMINATION: Alert and oriented 3, no focal deficits PSYCHIATRIC EXAMINATION: Calm and cooperative LABORATORY DATA: See below. IMAGING: Hand imaging negative for fracture/drainable collection MICROBIOLOGY: Please see below. ASSESSMENT: 38-year-old male with past medical history of anxiety, depression and polysubstance abuse is admitted to inpatient mental health unit after suicide attempt. PLAN: 1. Suicide attempt. Management as per primary team 2. Hand trauma. Possible overlying cellulitis, x-ray and ultrasound negative for fracture/foreign-body/drainable collection. Patient is MRSA positive, consider switching Augmentin to clindamycin or Bactrim for community-acquired MRSA coverage. Vital Signs Vital Signs Date Time Temp Pulse Resp B/P (MAP) Pulse Ox O2 Delivery O2 Flow Rate FiO2 03/22/19 10:01 Room Air 03/22/19 06:34 97.5 68 12 118/62 (80) 03/21/19 13:41 100 Home Medications Scheduled Bupropion HCl (Wellbutrin Sr) 100 Mg Tab.sr.12h, 100 MG PO BID Scheduled PRN Naproxen Sodium (Aleve) 220 Mg Tablet, 440 MG PO TID PRN for PAIN Allergies Coded Allergies: No Known Allergies (Verified , 02/04/04) A-FIB/CHADSVASC A-FIB History Current/History of A-Fib/PAF?: No JENNIFER FLORES MD Mar 22, 2019 14:36
[2019-03-22] MEDS ORDERED: VENLAFAXINE **XR** 37.5 MG CAPSULE PO ONE (15:00)
[2019-03-22] MEDS: OLANZapine ORAL DISINTEGRATING TAB 5MG PO PRN (15:24)
[2019-03-22] MEDS: NICOTINE 21MG/24HR 1 EA TRANSDERMAL TD PRN (16:20)
[2019-03-22 16:25] VITALS: BP 119/79
[2019-03-22] MEDS: traZODone 50 MG TAB PO PRN (21:36)
[2019-03-23 06:41] VITALS: BP 141/73
[2019-03-23] MEDS: IBUPROFEN 400 MG TAB PO PRN ×2 (06:52→20:43)
[2019-03-23] MEDS: OLANZapine ORAL DISINTEGRATING TAB 5MG PO PRN ×2 (06:53→20:42)
[2019-03-23] MEDS: buPROPion (WELLBUTRIN SR) 100 MG SR TAB PO SCH (08:35)
[2019-03-23] MEDS: AUGMENTIN 875 MG TAB PO SCH ×2 (08:35→20:42)
[2019-03-23] MEDS ORDERED: VENLAFAXINE **XR** 75MG CAPSULE PO SCH (09:00)
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
[2019-03-23] MEDS: ACETAMINOPHEN TAB 650MG DOSE (2X325MG) PO PRN ×2 (11:57→18:16)
[2019-03-23 16:20] VITALS: BP 133/70
[2019-03-23] MEDS ORDERED: LIDOCAINE 2% JELLY 30 ML TOP ONE (17:30)
[2019-03-23] MEDS: BUPRENORPHINE/NALOXONE 8-2MG SUBLINGUAL TABLET(SUBOXONE) SL SCH (17:40)
[2019-03-23] MEDS: traZODone 100 MG TAB PO PRN (20:42)
[2019-03-24 05:50] VITALS: BP 148/74
[2019-03-24] MEDS: buPROPion **XL** TABLET 150MG (WELLBUTRIN XL) PO SCH (08:56)
[2019-03-24] MEDS: AUGMENTIN 875 MG TAB PO SCH ×2 (08:56→20:49)
[2019-03-24] MEDS: BUPRENORPHINE/NALOXONE 8-2MG SUBLINGUAL TABLET(SUBOXONE) SL SCH (08:56)
[2019-03-24] MEDS: OLANZapine ORAL DISINTEGRATING TAB 5MG PO PRN ×2 (09:34→20:50)
[2019-03-24] MEDS: NICOTINE 21MG/24HR 1 EA TRANSDERMAL TD PRN (09:35)
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
[2019-03-24] MEDS: IBUPROFEN 400 MG TAB PO PRN (10:32)
[2019-03-24] MEDS: LIDOCAINE 2% JELLY 30 ML TOP PRN ×2 (11:33→20:51)
[2019-03-24 15:44] VITALS: BP 119/61
[2019-03-24] MEDS: traZODone 100 MG TAB PO PRN (20:49)
[2019-03-25] MEDS: IBUPROFEN 400 MG TAB PO PRN ×2 (06:46→20:49)
--- NOTE | 2019-03-25 07:44 | MHDSPDOC ---
[facility] Discharge Summary Vital Signs/I&Os Vital Signs Date Time Temp Pulse Resp B/P (MAP) Pulse Ox O2 Delivery O2 Flow Rate FiO2 03/24/19 15:44 98.0 73 18 119/61 (80) 03/22/19 10:01 Room Air 03/21/19 13:41 100 Medications Scheduled Bupropion HCl (Wellbutrin Sr) 100 Mg Tab.sr.12h, 100 MG PO BID, (Reported) Scheduled PRN Naproxen Sodium (Aleve) 220 Mg Tablet, 440 MG PO TID PRN for PAIN, (Reported) Allergies Coded Allergies: No Known Allergies (Verified , 02/04/04) MARCELA HODGES DO Mar 25, 2019 07:44
[2019-03-25 07:56] VITALS: BP 137/67
[2019-03-25] MEDS: BUPRENORPHINE/NALOXONE 8-2MG SUBLINGUAL TABLET(SUBOXONE) SL SCH (08:24)
[2019-03-25] MEDS: NICOTINE 21MG/24HR 1 EA TRANSDERMAL TD PRN (08:24)
[2019-03-25] MEDS: AUGMENTIN 875 MG TAB PO SCH ×2 (08:24→20:48)
[2019-03-25] MEDS: buPROPion **XL** TABLET 150MG (WELLBUTRIN XL) PO SCH (08:24)
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
[2019-03-25] MEDS: LIDOCAINE 2% JELLY 30 ML TOP PRN (14:01)
[2019-03-25 15:49] VITALS: BP 100/58
[2019-03-25] MEDS: OLANZapine ORAL DISINTEGRATING TAB 5MG PO PRN (16:36)
[2019-03-25] MEDS: ACETAMINOPHEN TAB 650MG DOSE (2X325MG) PO PRN (16:36)
[2019-03-25] MEDS: MOM 30ML SUSPENSION UDC PO PRN (18:30)
[2019-03-25] MEDS: traZODone 100 MG TAB PO PRN (20:49)
[2019-03-26 06:30] VITALS: BP 114/58
[2019-03-26] MEDS: buPROPion **XL** TABLET 150MG (WELLBUTRIN XL) PO SCH (08:21)
[2019-03-26] MEDS: NICOTINE 21MG/24HR 1 EA TRANSDERMAL TD PRN (08:21)
[2019-03-26] MEDS: BUPRENORPHINE/NALOXONE 8-2MG SUBLINGUAL TABLET(SUBOXONE) SL SCH (08:22)
[2019-03-26] MEDS: LIDOCAINE 2% JELLY 30 ML TOP PRN ×2 (08:22→21:39)
[2019-03-26] MEDS ORDERED: TUBERCULIN PPD 5 UNITS/0.1 ML ID ONE (11:00)
[2019-03-26] MEDS: IBUPROFEN 400 MG TAB PO PRN ×2 (12:45→21:38)
[2019-03-26] MEDS: OLANZapine ORAL DISINTEGRATING TAB 5MG PO PRN ×2 (12:45→21:39)
[2019-03-26 16:40] VITALS: BP 133/65
[2019-03-26] MEDS: traZODone 100 MG TAB PO PRN (21:38)
[2019-03-26] MEDS: ACETAMINOPHEN TAB 650MG DOSE (2X325MG) PO PRN (21:38)
[2019-03-27 06:39] VITALS: BP 131/68
[2019-03-27] MEDS: buPROPion **XL** TABLET 150MG (WELLBUTRIN XL) PO SCH (08:33)
[2019-03-27] MEDS: BUPRENORPHINE/NALOXONE 8-2MG SUBLINGUAL TABLET(SUBOXONE) SL SCH (08:33)
[2019-03-27] MEDS: NICOTINE 21MG/24HR 1 EA TRANSDERMAL TD PRN (10:57)
[2019-03-27] MEDS: IBUPROFEN 400 MG TAB PO PRN (10:57)
[2019-03-27] MEDS: OLANZapine ORAL DISINTEGRATING TAB 5MG PO PRN (10:57)
[2019-03-27 16:16] VITALS: BP 106/59
[2019-03-27] MEDS: MOM 30ML SUSPENSION UDC PO PRN (19:29)
[2019-03-27] MEDS: ACETAMINOPHEN TAB 650MG DOSE (2X325MG) PO PRN (20:18)
[2019-03-27] MEDS: LIDOCAINE 2% JELLY 30 ML TOP PRN (20:18)
[2019-03-27] MEDS: traZODone 100 MG TAB PO PRN (20:18)
[2019-03-28 06:41] VITALS: BP 131/74
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
[2019-03-28] MEDS ORDERED: BUPR150T3 PO (07:42)
[2019-03-28] MEDS ORDERED: BUPR1SUB5 SL (07:42)
[2019-03-28] MEDS: buPROPion **XL** TABLET 150MG (WELLBUTRIN XL) PO SCH (09:11)
[2019-03-28] MEDS: BUPRENORPHINE/NALOXONE 8-2MG SUBLINGUAL TABLET(SUBOXONE) SL SCH (09:11)
[2019-03-28] MEDS: IBUPROFEN 400 MG TAB PO PRN (09:48)
[2019-03-28] MEDS: NICOTINE 21MG/24HR 1 EA TRANSDERMAL TD PRN (09:48)
[2019-03-28] MEDS: LIDOCAINE 2% JELLY 30 ML TOP PRN (09:49)
[2019-03-28] MEDS: OLANZapine ORAL DISINTEGRATING TAB 5MG PO PRN (10:45)
[2019-03-28] MEDS ORDERED: PPD DOCUMENTATION ENTRY MISC XX ONE (11:00)
== END 2019-03-28 11:10 | DRG 754 ==
LOC: M ED 05:22 → M ED INP 03-21 12:46 → M PSY 03-21 13:28
PROVIDERS: ADMIT Psychiatry & Neurology Addiction Medicine; ATTEND Psychiatry & Neurology Addiction Medicine
DX: F32.9 Major depressive disorder, single episode, unspecified (principal); F12.20 Cannabis dependence, uncomplicated; F15.20 Other stimulant dependence, uncomplicated; F16.20 Hallucinogen dependence, uncomplicated; F17.210 Nicotine dependence, cigarettes, uncomplicated; F43.10 Post-traumatic stress disorder, unspecified; Z79.899 Other long term (current) drug therapy; Z59.0 Homelessness; Z56.0 Unemployment, unspecified; Z81.3 Family history of other psychoactive substance abuse and dependence; F41.9 Anxiety disorder, unspecified; F19.20 Other psychoactive substance dependence, uncomplicated; L03.119 Cellulitis of unspecified part of limb; B95.62 Methicillin resistant Staphylococcus aureus infection as the cause of diseases classified elsewhere; G89.29 Other chronic pain; M54.9 Dorsalgia, unspecified

== ENCOUNTER 2020-01-20 15:07 | Emergency (ER) | payer MEDICAID, OTHER ==
[~2020-01-20] VITALS: Ht 170.2 cm; Wt 88.0 kg
[~2020-01-20 15:07] MED LIST changes: +ALEV220T22 PO; +BUPR150T3 PO; +BUPR1SUB5 SL
[2020-01-20] MEDS ORDERED: GUAN1TA (15:18)
--- NOTE | 2020-01-20 16:23 | REP ---
INDICATION: sudden vision loss right eye. COMPARISON: Comparison CT brain July 15, 2015.. TECHNIQUE: Helical scanning is acquired. 5 mm axial images were reformatted. Coronal MPR images were generated. FINDINGS: Bone window settings demonstrate an intact bony calvarium. There is no evidence of skull fracture or incidental bony calvarial lesion. The visualized paranasal sinuses appear clear. No intraorbital abnormality is seen. On soft tissue window setting images; the lateral, third, and fourth ventricles are normal in size and position. Ashraf-white differentiation pattern is normal above and below the tentorium. There are is no evidence of intracranial hemorrhage. No mass, edema, infarction, or midline shift is seen. No extra-axial fluid collection is appreciated. IMPRESSION: Negative noncontrast head CT. <Electronically signed by Uziel James > 01/20/20 [id number]
[2020-01-20 17:15] LABS: BASO % 0.4 % (0.0-1.0); EOS # 0.1 10^3/uL (0.0-0.5); EOS % 1.7 % (0.0-3.0); HEMATOCRIT 47.8 % (42.0-52.0); LYMPH # 1.9 10^3/uL (1.5-5.0); LYMPH % 27.2 % (24.0-44.0); MEAN CORPUSCULAR HEMOGLOBIN 31.1 pg (27.0-33.0); MEAN CORPUSCULAR HGB CONC 35.6 g/dl (32.0-36.5); MEAN CORPUSCULAR VOLUME 87.5 fl (80.0-96.0); MONO # 0.4 10^3/uL (0.0-0.8); MONO % 5.6 % (0.0-5.0); NEUTROPHILS # 4.5 10^3/uL (1.5-8.5); NEUTROPHILS % 64.4 % (36.0-66.0); PLATELET COUNT, AUTOMATED 295 10^3/uL (150-450); RED BLOOD COUNT 5.46 10^6/uL (4.30-6.10)
[2020-01-20 17:33] LABS: ALBUMIN 4.5 GM/DL (3.2-5.2); ALT/SGPT 29 U/L (12-78); BILIRUBIN,DIRECT 0.1 MG/DL (0.0-0.2); BILIRUBIN,TOTAL 0.5 MG/DL (0.2-1.0); BLOOD UREA NITROGEN 15 MG/DL (7-18); CALCIUM LEVEL 9.5 MG/DL (8.5-10.1); CARBON DIOXIDE LEVEL 26 MEQ/L (21-32); CHLORIDE LEVEL 107 MEQ/L (98-107); CK-MB VALUE MASS 1.4 NG/ML (<3.6); CPK CREATINE PHOSPHOKINASE 150 U/L (39-308); CREATININE FOR GFR 0.77 MG/DL (0.70-1.30); GLOMERULAR FILTRATION RATE > 60.0 (>60); GLUCOSE, FASTING 89 MG/DL (70-100); MB/CK RELATIVE INDEX 0.93 (< OR =4); POTASSIUM SERUM 4.3 MEQ/L (3.5-5.1); SODIUM LEVEL 138 MEQ/L (136-145); TOTAL PROTEIN 8.6 GM/DL (6.4-8.2); TROPONIN I < 0.02 NG/ML (< 0.10)
[2020-01-20 18:11] LABS: INR 0.97; PARTIAL THROMBOPLASTIN TIME 33.2 SECONDS (24.2-38.5); PROTHROMBIN TIME 13.1 SECONDS (12.5-14.3)
[2020-01-20 18:12] LABS: ERYTHROCYTE SEDIMENTATION RATE 6 mm/hr (0-15)
--- NOTE | 2020-01-20 21:14 | REPVR ---
PROCEDURE INFORMATION: Exam: MR Head Without Contrast Exam date and time: 01/20/2020 7:56 PM Age: 39 years old Clinical indication: Visual disturbance; Additional info: Diploplia TECHNIQUE: Imaging protocol: MR of the head without contrast. COMPARISON: CT Head without contrast 01/20/2020 4:09 PM FINDINGS: Brain: There is no acute infarct. No acute intracranial hemorrhage is seen. No mass, mass effect, midline shift, or herniation is noted. There are few foci of T2 and FLAIR hyperintensity in the supratentorial subcortical white matter, which are likely the the sequela of chronic small vessel ischemic injury. The corpus callosum is normal. The cortical gyration pattern, basal ganglia, thalami, brainstem, and cerebellum are normal. Cerebral ventricles: Normal. No hydrocephalus. Bones/joints: Unremarkable. Paranasal sinuses: There is mild mucosal thickening involving the ethmoid sinuses. There is a 6 mm mucous retention cyst in the anterior aspect of the base of right maxillary sinus. There is mild mucosal thickening in the left maxillary sinus. No air-fluid levels are noted in the sinuses. Mastoid air cells: Clear. Orbits: There is ferromagnetic artifact in the anterior superior aspect of the left orbit, which corresponds to a 7 mm linear metallic foreign body on review of the CT head on 01/20/2020. The globes are intact. Soft tissues: Unremarkable. IMPRESSION: 1. Small metallic foreign body in the anterior superior aspect of the left orbit. Intact globes. 2. No acute infarct or acute intracranial abnormality. 3. Mild subcortical white matter changes, which are likely the sequela of chronic small vessel ischemic injury. Electronically signed by: Sushil Morrison On 01/20/2020 21:14:02 PM
--- NOTE | 2020-01-20 21:20 | REPVR ---
PROCEDURE INFORMATION: Exam: MR Angiogram Head Without Contrast, Arteries Exam date and time: 01/20/2020 7:56 PM Age: 39 years old Clinical indication: Visual disturbance; Diplopia; Additional info: Diploplia TECHNIQUE: Imaging protocol: MR angiogram head without contrast. Exam focused on the arteries. 3D rendering (Not supervised by radiologist): MIP and/or 3D reconstructed images were created by the technologist. COMPARISON: CT Head without contrast 01/20/2020 4:09 PM FINDINGS: ANTERIOR CIRCULATION: Right internal carotid artery: Intracranial segment is patent with no significant stenosis. No aneurysm. Right middle cerebral artery: No occlusion or significant stenosis. No aneurysm. Right anterior cerebral artery: No occlusion or significant stenosis. No aneurysm. Left internal carotid artery: Intracranial segment is patent with no significant stenosis. No aneurysm. Left middle cerebral artery: No occlusion or significant stenosis. No aneurysm. Left anterior cerebral artery: No occlusion or significant stenosis. No aneurysm. POSTERIOR CIRCULATION: Right vertebral artery: No occlusion or significant stenosis. No aneurysm. Left vertebral artery: No occlusion or significant stenosis. No aneurysm. Basilar artery: No occlusion or significant stenosis. No aneurysm. Right posterior cerebral artery: No occlusion or significant stenosis. No aneurysm. Left posterior cerebral artery: No occlusion or significant stenosis. No aneurysm. Other findings: The exam is degraded by patient motion artifact. IMPRESSION: 1. Motion limited exam. 2. Normal MRA. No significant stenosis, aneurysm, or vascular occlusion. Electronically signed by: Giovanny Banegas On 01/20/2020 21:20:42 PM
[2020-01-20 21:40] VITALS: BP 145/85
--- NOTE | 2020-01-23 11:56 | ED PDOC ---
Post-Departure Follow-Up mri brain faxed to dr malone for fu Leia Shelton MD Jan 23, 2020 11:56
== END 2020-01-20 21:47 | disposition home or self-care (01) ==
LOC: M ED 15:07
DX: H54.7 Unspecified visual loss (principal); F33.9 Major depressive disorder, recurrent, unspecified; Z79.899 Other long term (current) drug therapy; Z87.891 Personal history of nicotine dependence; F15.20 Other stimulant dependence, uncomplicated

== ENCOUNTER 2022-01-24 02:14 | Emergency (ER) | payer OTHER ==
[~2022-01-24] VITALS: Ht 167.6 cm; Wt 83.4 kg
[~2022-01-24 02:14] MED LIST changes: +BUPR150T12 PO; -BUPR150T3 PO; +GUAN1TA
[2022-01-24 02:15] VITALS: BP 124/79
== END 2022-01-24 05:19 | disposition left against medical advice (07) ==
LOC: M ED 02:14
DX: Z53.21 Procedure and treatment not carried out due to patient leaving prior to being seen by health care provider (principal)

== ENCOUNTER 2022-02-03 22:08 | Emergency (ER) | payer OTHER, SELFPAY ==
[~2022-02-03] VITALS: Ht 167.6 cm; Wt 77.9 kg
[2022-02-03] MEDS ORDERED: ONDANSETRON 4MG ORAL DISINTEGRATING TAB PO ONE (22:15)
[2022-02-03 22:20] VITALS: BP 167/83
[2022-02-03] MEDS ORDERED: BUPR1FIL3 (22:27)
[2022-02-03 22:58] LABS: BASO % 0.4 % (0.0-1.0); EOS # 0.3 10^3/uL (0.0-0.5); HEMATOCRIT 35.1 % (42.0-52.0); HEMOGLOBIN 12.2 g/dl (13.5-17.5); LYMPH # 1.6 10^3/uL (1.5-5.0); LYMPH % 22.6 % (24.0-44.0); MEAN CORPUSCULAR HEMOGLOBIN 30.4 pg (27.0-33.0); MEAN CORPUSCULAR HGB CONC 34.8 g/dl (32.0-36.5); MEAN CORPUSCULAR VOLUME 87.5 fl (80.0-96.0); MONO # 0.4 10^3/uL (0.0-0.8); MONO % 5.7 % (2.0-8.0); NEUTROPHILS # 4.7 10^3/uL (1.5-8.5); PLATELET COUNT, AUTOMATED 345 10^3/uL (150-450); RED BLOOD COUNT 4.01 10^6/uL (4.30-6.10)
[2022-02-03 23:37] LABS: ALBUMIN 3.6 G/DL (3.2-5.2); ALT/SGPT 20 U/L (7.0-40); BILIRUBIN,TOTAL 0.4 MG/DL (0.3-1.2); BLOOD UREA NITROGEN 12 MG/DL (9-23); CALCIUM LEVEL 8.2 MG/DL (8.5-10.1); CARBON DIOXIDE LEVEL 27 MMOL/L (20-31); CHLORIDE LEVEL 107 MMOL/L (98-107); CK-MB VALUE MASS 12.7 NG/ML (<3.6); CPK CREATINE PHOSPHOKINASE 379 U/L (46-171); CREATININE FOR GFR 0.84 MG/DL (0.70-1.30); GLOMERULAR FILTRATION RATE > 60.0 (>60); GLUCOSE, FASTING 109 MG/DL (60-100); MB/CK RELATIVE INDEX 3.35 (< OR =4); POTASSIUM SERUM 3.6 MMOL/L (3.5-5.1); SODIUM LEVEL 143 MMOL/L (136-145)
[2022-02-04] MEDS ORDERED: ONDA4TAB6 PO (01:15)
== END 2022-02-04 01:47 | disposition home or self-care (01) ==
LOC: M ED 22:08
DX: R11.2 Nausea with vomiting, unspecified (principal); F19.10 Other psychoactive substance abuse, uncomplicated; F17.200 Nicotine dependence, unspecified, uncomplicated

== ENCOUNTER 2022-04-29 18:14 | Inpatient (IN) | payer OTHER ==
[~2022-04-29] VITALS: Ht 165.1 cm; Wt 77.7 kg
[~2022-04-29 18:14] MED LIST changes: +BUPR1FIL3; +ONDA4TAB6 PO
[2022-04-29 19:23] LABS: HEMATOCRIT 41.9 % (42.0-52.0); MEAN CORPUSCULAR HEMOGLOBIN 29.5 pg (27.0-33.0); MEAN CORPUSCULAR HGB CONC 33.4 g/dl (32.0-36.5); MEAN CORPUSCULAR VOLUME 88.2 fl (80.0-96.0); PLATELET COUNT, AUTOMATED 209 10^3/uL (150-450); RED BLOOD COUNT 4.75 10^6/uL (4.30-6.10); WHITE BLOOD COUNT 11.9 10^3/uL (4.0-10.0)
[2022-04-29] MEDS ORDERED: ceFAZolin SOD 1 GM in D5W MINI-BAG PLUS 50 ML IV ONE (19:40)
[2022-04-29 19:45] LABS: BARBITURATES URINE NEGATIVE (NEGATIVE); BENZODIAZEPINES URINE NEGATIVE (NEGATIVE); METHADONE URINE NEGATIVE (NEGATIVE); PHENCYCLIDINE URINE NEGATIVE (NEGATIVE)
[2022-04-29 19:46] LABS: ETHYL ALCOHOL (ETHANOL) < 0.003 % (0.000-0.010)
[2022-04-29 19:47] LABS: AMPHETAMINES LEVEL URINE POSITIVE (NEGATIVE); CANNABINOIDS URINE POSITIVE (NEGATIVE); COCAINE METABOLITE URINE POSITIVE (NEGATIVE); OPIATES URINE POSITIVE (NEGATIVE)
[2022-04-29 19:48] LABS: ACETAMINOPHEN LEVEL < 2.0 UG/ML (10.0-20.0); ALBUMIN 3.7 G/DL (3.2-5.2); ALKALINE PHOSPHATASE 110 U/L (46-116); ALT/SGPT 33 U/L (7.0-40); AST/SGOT 12 U/L (<34); BILIRUBIN,DIRECT 0.3 MG/DL (<0.4); BILIRUBIN,TOTAL 0.8 MG/DL (0.3-1.2); BLOOD UREA NITROGEN 11 MG/DL (9-23); CALCIUM LEVEL 9.1 MG/DL (8.5-10.1); CARBON DIOXIDE LEVEL 28 MMOL/L (20-31); CHLORIDE LEVEL 102 MMOL/L (98-107); CREATININE FOR GFR 0.75 MG/DL (0.70-1.30); GLOMERULAR FILTRATION RATE > 60.0 (>60); GLUCOSE, FASTING 134 MG/DL (60-100); POTASSIUM SERUM 3.7 MMOL/L (3.5-5.1); SALICYLATE LEVEL < 3.0 MG/DL (<30); SODIUM LEVEL 135 MMOL/L (136-145); TOTAL PROTEIN 8.4 G/DL (5.7-8.2)
[2022-04-29 19:51] LABS: THYROID STIMULATING HORMONE 0.236 uIU/ML (0.55-4.78)
[2022-04-29] MEDS ORDERED: IBUP200T46 PO (20:07)
[2022-04-29] MEDS ORDERED: HOME MED LIST COMPLETE! XX SCH (20:10)
[2022-04-29] MEDS: MUPIROCIN 2% OINT 22 GM TUBE TOP SCH (21:00)
[2022-04-29] MEDS ORDERED: hydrOXYzine 50 MG TAB PO PRN (21:40)
[2022-04-29] MEDS ORDERED: ACETAMINOPHEN TAB 650MG DOSE (2X325MG) PO PRN (21:40)
[2022-04-29] MEDS ORDERED: VANCOMYCIN HCL 1,000 MG, VIAL MATE ADAPTER 1 EACH in NS 250 ML IV SCH (21:40)
[2022-04-29] MEDS ORDERED: ONDANSETRON 4MG ORAL DISINTEGRATING TAB PO PRN (21:40)
[2022-04-29] MEDS ORDERED: cloNIDine 0.1MG TABLET PO PRN (21:40)
[2022-04-29] MEDS ORDERED: VANCOMYCIN HCL 750 MG, VIAL MATE ADAPTER 1 EACH in D5W 250 ML IV ONE (23:00)
[2022-04-29 23:11] VITALS: BP 126/72
[2022-04-29] MEDS: NS 1,000 ML IV SCH (23:11)
[2022-04-30] MEDS ORDERED: VANCOMYCIN HCL 750 MG, VIAL MATE ADAPTER 1 EACH in D5W 250 ML IV ONE ×3
[2022-04-30] MEDS: IBUPROFEN 400MG TAB PO PRN ×2 (02:18→18:50)
[2022-04-30 05:21] VITALS: BP 117/67
[2022-04-30 06:17] LABS: HEMATOCRIT 38.1 % (42.0-52.0); HEMOGLOBIN 13.2 g/dl (13.5-17.5); MEAN CORPUSCULAR HEMOGLOBIN 29.8 pg (27.0-33.0); MEAN CORPUSCULAR HGB CONC 34.6 g/dl (32.0-36.5); PLATELET COUNT, AUTOMATED 233 10^3/uL (150-450); RED BLOOD COUNT 4.43 10^6/uL (4.30-6.10); WHITE BLOOD COUNT 7.9 10^3/uL (4.0-10.0)
[2022-04-30 06:48] LABS: BLOOD UREA NITROGEN 11 MG/DL (9-23); CALCIUM LEVEL 8.6 MG/DL (8.5-10.1); CARBON DIOXIDE LEVEL 28 MMOL/L (20-31); CHLORIDE LEVEL 102 MMOL/L (98-107); CREATININE FOR GFR 0.61 MG/DL (0.70-1.30); GLOMERULAR FILTRATION RATE > 60.0 (>60); GLUCOSE, FASTING 101 MG/DL (60-100); POTASSIUM SERUM 3.4 MMOL/L (3.5-5.1); SODIUM LEVEL 137 MMOL/L (136-145)
[2022-04-30] MEDS ORDERED: INFLUENZA QUADRIVALENT PF VACCINE 0.5ML SYRINGE IM.IMMUN ONE (09:00)
[2022-04-30] MEDS: VANCOMYCIN HCL 750 MG, VIAL MATE ADAPTER 1 EACH in D5W 250 ML IV SCH ×2 (09:04→20:28)
[2022-04-30] MEDS: ENOXAPARIN 40MG/0.4ML SYRINGE (J1650 PER 10MG) SC SCH (09:05)
[2022-04-30] MEDS: NS 1,000 ML IV SCH (09:06)
[2022-04-30] MEDS ORDERED: POTASSIUM CHLORIDE 10MEQ SR TABLET PO ONE (09:20)
[2022-04-30] MEDS: AMPICILLIN SOD/SULBACTAM SOD 3 GM in D5W MINI-BAG PLUS 100 ML IV SCH ×3 (10:43→23:04)
[2022-04-30] MEDS: MUPIROCIN 2% OINT 22 GM TUBE TOP SCH ×3 (10:44→23:03)
[2022-04-30] MEDS: OXAZEPAM 15MG CAP PO SCH ×2 (11:30→17:15)
[2022-04-30] MEDS: VANCOMYCIN HCL 500 MG in D5W MINI-BAG PLUS 100 ML IV SCH ×2 (11:31→21:59)
[2022-04-30 14:02] VITALS: BP 132/85
[2022-04-30] MEDS: LORazepam 1 MG TAB PO PRN ×2 (15:39→20:26)
[2022-04-30 18:28] VITALS: BP 145/89
[2022-04-30 20:00] VITALS: BP 128/78
[2022-04-30] MEDS: cloNIDine 0.1MG TABLET PO SCH (20:26)
[2022-04-30] MEDS: ONDANSETRON 4MG 2ML VIAL IV PRN (22:05)
[2022-05-01] VITALS (7 sets, daily range): BP systolic 116–150; BP diastolic 59–87
[2022-05-01] MEDS: OXAZEPAM 15MG CAP PO SCH ×3 (00:09→19:56)
[2022-05-01] MEDS: IBUPROFEN 400MG TAB PO PRN ×2 (03:49→12:50)
[2022-05-01] MEDS: AMPICILLIN SOD/SULBACTAM SOD 3 GM in D5W MINI-BAG PLUS 100 ML IV SCH (03:49)
[2022-05-01] MEDS: LORazepam 1 MG TAB PO PRN ×2 (03:49→22:59)
[2022-05-01 05:56] LABS: BASO % 0.5 % (0.0-1.0); EOS # 0.1 10^3/uL (0.0-0.5); EOS % 1.1 % (0.0-3.0); HEMATOCRIT 39.4 % (42.0-52.0); HEMOGLOBIN 13.4 g/dl (13.5-17.5); LYMPH # 2.3 10^3/uL (1.5-5.0); LYMPH % 34.2 % (24.0-44.0); MEAN CORPUSCULAR HEMOGLOBIN 29.1 pg (27.0-33.0); MEAN CORPUSCULAR VOLUME 85.7 fl (80.0-96.0); MONO # 0.5 10^3/uL (0.0-0.8); MONO % 7.8 % (2.0-8.0); NEUTROPHILS # 3.7 10^3/uL (1.5-8.5); NEUTROPHILS % 55.9 % (36.0-66.0); PLATELET COUNT, AUTOMATED 253 10^3/uL (150-450); WHITE BLOOD COUNT 6.7 10^3/uL (4.0-10.0)
[2022-05-01 06:23] LABS: BLOOD UREA NITROGEN 9 MG/DL (9-23); CALCIUM LEVEL 8.7 MG/DL (8.5-10.1); CARBON DIOXIDE LEVEL 26 MMOL/L (20-31); CHLORIDE LEVEL 105 MMOL/L (98-107); CREATININE FOR GFR 0.52 MG/DL (0.70-1.30); GLOMERULAR FILTRATION RATE > 60.0 (>60); GLUCOSE, FASTING 102 MG/DL (60-100); MAGNESIUM LEVEL 1.8 MG/DL (1.8-2.4); POTASSIUM SERUM 3.7 MMOL/L (3.5-5.1); SODIUM LEVEL 140 MMOL/L (136-145)
[2022-05-01 07:35] LABS: FREE T4 0.87 NG/DL (0.89-1.76)
[2022-05-01] MEDS: cloNIDine 0.1MG TABLET PO SCH ×3 (09:13→21:00)
[2022-05-01] MEDS: ENOXAPARIN 40MG/0.4ML SYRINGE (J1650 PER 10MG) SC SCH (09:13)
[2022-05-01] MEDS: MUPIROCIN 2% OINT 22 GM TUBE TOP SCH ×3 (09:14→21:00)
[2022-05-01] MEDS: VANCOMYCIN HCL 750 MG, VIAL MATE ADAPTER 1 EACH in D5W 250 ML IV SCH ×2 (09:35→16:01)
[2022-05-01] MEDS: VANCOMYCIN HCL 500 MG in D5W MINI-BAG PLUS 100 ML IV SCH ×2 (10:43→17:09)
[2022-05-01] MEDS ORDERED: OXAZEPAM 15MG CAP PO SCH (18:00)
[2022-05-01] MEDS: ONDANSETRON 4MG 2ML VIAL IV PRN (22:51)
[2022-05-02] MEDS: VANCOMYCIN HCL 750 MG, VIAL MATE ADAPTER 1 EACH in D5W 250 ML IV SCH (00:35)
[2022-05-02] MEDS: VANCOMYCIN HCL 500 MG in D5W MINI-BAG PLUS 100 ML IV SCH (01:43)
[2022-05-02] MEDS ORDERED: LORazepam 1 MG TAB PO STA (02:01)
[2022-05-02 04:00] VITALS: BP 138/76
[2022-05-02 04:53] LABS: ALBUMIN 3.4 G/DL (3.2-5.2); ALKALINE PHOSPHATASE 83 U/L (46-116); ALT/SGPT 29 U/L (7.0-40); AST/SGOT 19 U/L (<34); BILIRUBIN,TOTAL 0.9 MG/DL (0.3-1.2); BLOOD UREA NITROGEN 9 MG/DL (9-23); CALCIUM LEVEL 9.1 MG/DL (8.5-10.1); CARBON DIOXIDE LEVEL 23 MMOL/L (20-31); CHLORIDE LEVEL 105 MMOL/L (98-107); CREATININE FOR GFR 0.52 MG/DL (0.70-1.30); GLOMERULAR FILTRATION RATE > 60.0 (>60); GLUCOSE, FASTING 110 MG/DL (60-100); MAGNESIUM LEVEL 1.8 MG/DL (1.8-2.4); PHOSPHORUS LEVEL 3.5 MG/DL (2.5-4.9); POTASSIUM SERUM 3.8 MMOL/L (3.5-5.1); SODIUM LEVEL 136 MMOL/L (136-145); TOTAL PROTEIN 7.8 G/DL (5.7-8.2)
[2022-05-02 07:16] LABS: FREE T3 2.9 PG/ML (2.3-4.2)
[2022-05-02] MEDS ORDERED: LINEZOLID 600MG TABLET (ZYVOX) PO SCH (09:00)
[2022-05-02] MEDS: ENOXAPARIN 40MG/0.4ML SYRINGE (J1650 PER 10MG) SC SCH (09:50)
[2022-05-02] MEDS: cloNIDine 0.1MG TABLET PO SCH ×2 (09:51→16:24)
[2022-05-02] MEDS: OXAZEPAM 15MG CAP PO SCH (09:51)
[2022-05-02] MEDS: MUPIROCIN 2% OINT 22 GM TUBE TOP SCH ×2 (09:51→16:24)
[2022-05-02 15:48] VITALS: BP 136/78
[2022-05-02] MEDS: LORazepam 1 MG TAB PO PRN (16:02)
[2022-05-02 16:24] VITALS: BP 136/78
[2022-05-02] MEDS ORDERED: LINE1TAB6 PO (21:26)
== END 2022-05-02 22:39 | disposition left against medical advice (07) | DRG 383 ==
LOC: M ED 18:14 → M ED INP 21:37 → M MS5PR 23:11 → M PCU 04-30 18:05
PROVIDERS: ADMIT Family Medicine; ATTEND Internal Medicine
DX: L03.113 Cellulitis of right upper limb (principal); R45.851 Suicidal ideations; F32.A Depression, unspecified; F41.9 Anxiety disorder, unspecified; F17.210 Nicotine dependence, cigarettes, uncomplicated; Z20.822 Contact with and (suspected) exposure to COVID-19; F15.13 Other stimulant abuse with withdrawal; F14.13 Cocaine abuse, unspecified with withdrawal; F11.24 Opioid dependence with opioid-induced mood disorder; Z91.199 Patient's noncompliance with other medical treatment and regimen due to unspecified reason; L03.114 Cellulitis of left upper limb; Z91.51 Personal history of suicidal behavior

== ENCOUNTER 2022-05-12 13:24 | Emergency (ER) | payer OTHER ==
[~2022-05-12] VITALS: Ht 170.2 cm; Wt 79.5 kg
[~2022-05-12 13:24] MED LIST changes: +IBUP200T46 PO; +LINE1TAB6 PO
[2022-05-12] MEDS ORDERED: GUAN1TAB16 (13:39)
[2022-05-12] MEDS ORDERED: BUPR150T12 (13:39)
[2022-05-12 16:21] VITALS: BP 159/76
== END 2022-05-12 16:45 | disposition home or self-care (01) ==
LOC: M ED 13:24
DX: T40.2X1A Poisoning by other opioids, accidental (unintentional), initial encounter (principal); F19.10 Other psychoactive substance abuse, uncomplicated; F17.200 Nicotine dependence, unspecified, uncomplicated